=== PATIENT | female | born 1950 | race Two or more races ===

== ENCOUNTER → 2024-02-13 | Outpatient (CLI) | payer OTHER, MEDICAID, SELFPAY ==
[2024-02-13 11:50] LABS: Glucose Estimated Average 151 mg/dL (80-131); Hemoglobin A1C 6.9 % Hgb (4.8-6.0)
[2024-02-13 12:06] LABS: Anion Gap 7 (7-16); BUN/Creatinine Ratio 21 Ratio (12-20); Blood Urea Nitrogen 21 mg/dL (9-23); Calcium 9.2 mg/dL (8.3-10.6); Carbon Dioxide 27.5 mMol/L (20.0-31.0); Cardiac Risk Estimate 4.1 RATIO (3.7-5.6); Chloride 106 mMol/L (98-107); Cholesterol 207 mg/dL (132-200); Glucose 118 mg/dL (74-106); HDL Cholesterol 50 mg/dL (40-60); LDL Cholesterol,Calculated 112 mg/dL (0-130); Osmolality,Calculated 283 (275-295); Potassium 4.6 mMol/L (3.4-5.1); Sodium 140 mMol/L (136-145); Thyroid Stimulating Hormone 7.07 uIU/mL (0.55-4.78); Triglycerides 223 mg/dL (30-150); eGFR 59 See Note
== END | disposition home or self-care (01) ==
PROVIDERS: PCP Family Medicine; Referring Provider Family Medicine; Visit Provider Family Medicine
DX: E11.65 Type 2 diabetes mellitus with hyperglycemia (principal); E03.9 Hypothyroidism, unspecified; E78.2 Mixed hyperlipidemia
CPT/HCPCS: 36415; 80048; 80061; 83036; 84439; 84443

== ENCOUNTER 2024-02-24 07:19 | Outpatient (RCR) | payer OTHER, SELFPAY ==
[2024-02-09 16:40] LABS: Basophils % (Auto) 1 % (0-2.5); Eosinophils % (Auto) 1 % (0-10); Hematocrit 30.8 % (36.0-46.0); Hemoglobin 10.6 g/dL (12.0-16.0); Immature Granulocytes % (Auto) 1 % (0-0); Immature Granulocytes Auto 0.03 Thou/mm3 (0.00-0.00); Lymphocytes # (Auto) 1.9 Thou/mm3 (1.0-4.8); Lymphocytes % (Auto) 39 % (10-50); Mean Corpuscular HGB Conc 34.4 g/dl (31.0-37.0); Mean Corpuscular Hemoglobin 33.8 pg (25.0-35.0); Mean Corpuscular Volume 98 fL (80-100); Monocytes # (Auto) 0.4 Thou/mm3 (0.0-0.8); Monocytes % (Auto) 8 % (0-12); Neutrophils # (Auto) 2.5 Thou/mm3 (1.8-7.7); Neutrophils % (Auto) 52 % (37-80); Nucleated Red Blood Cell # 0.02 Thou/mm3 (0.00-0.00); Nucleated Red Blood Cell % 0 /100 WBC (0); Platelet Count 225 Thou/mm3 (140-440); RDW Standard Deviation 73.3 fL (36.4-46.3); Red Blood Count 3.14 Miln/mm3 (4.00-5.20); White Blood Count 4.9 Thou/mm3 (3.6-11.0)
[2024-02-09 17:27] LABS: Alanine Aminotransferase 20 U/L (10-49); Albumin, Serum 4.3 gm/dL (3.4-4.8); Albumin/Globulin Ratio 1.7 (1.2-2.2); Alkaline Phosphatase 67 U/L (46-116); Anion Gap 11 (7-16); Aspartate Amino Transferase 17 U/L (0-34); BUN/Creatinine Ratio 17 Ratio (12-20); Bilirubin,Total 0.3 mg/dL (0.3-1.2); Blood Urea Nitrogen 19 mg/dL (9-23); Carbon Dioxide 22.9 mMol/L (20.0-31.0); Chloride 104 mMol/L (98-107); Creatinine (Component) 1.1 mg/dL (0.6-1.3); Globulin 2.6 gm/dL (2.3-3.5); Glucose 251 mg/dL (74-106); Osmolality,Calculated 285 (275-295); Potassium 3.9 mMol/L (3.4-5.1); Sodium 138 mMol/L (136-145); Total Protein 6.9 gm/dL (5.7-8.2); eGFR 52 See Note
[2024-02-09 17:30] LABS: Carcinoembryonic Antigen 3.2 ng/mL (0.0-5.0)
[2024-02-17 08:17] LABS: Basophils % (Auto) 1 % (0-2.5); Eosinophils % (Auto) 1 % (0-10); Hematocrit 29.1 % (36.0-46.0); Hemoglobin 10.2 g/dL (12.0-16.0); Immature Granulocytes % (Auto) 1 % (0-0); Immature Granulocytes Auto 0.03 Thou/mm3 (0.00-0.00); Lymphocytes # (Auto) 1.8 Thou/mm3 (1.0-4.8); Lymphocytes % (Auto) 42 % (10-50); Mean Corpuscular HGB Conc 35.1 g/dl (31.0-37.0); Mean Corpuscular Hemoglobin 34.6 pg (25.0-35.0); Mean Corpuscular Volume 99 fL (80-100); Monocytes # (Auto) 0.4 Thou/mm3 (0.0-0.8); Monocytes % (Auto) 8 % (0-12); Neutrophils % (Auto) 47 % (37-80); Nucleated Red Blood Cell # 0.02 Thou/mm3 (0.00-0.00); Nucleated Red Blood Cell % 1 /100 WBC (0); Platelet Count 173 Thou/mm3 (140-440); RDW Standard Deviation 69.3 fL (36.4-46.3); Red Blood Count 2.95 Miln/mm3 (4.00-5.20); White Blood Count 4.2 Thou/mm3 (3.6-11.0)
[2024-02-17 08:57] LABS: Alanine Aminotransferase 16 U/L (10-49); Albumin, Serum 4.2 gm/dL (3.4-4.8); Albumin/Globulin Ratio 1.7 (1.2-2.2); Alkaline Phosphatase 60 U/L (46-116); Anion Gap 9 (7-16); Aspartate Amino Transferase 12 U/L (0-34); BUN/Creatinine Ratio 24 Ratio (12-20); Bilirubin,Total 0.4 mg/dL (0.3-1.2); Blood Urea Nitrogen 19 mg/dL (9-23); Carbon Dioxide 24.4 mMol/L (20.0-31.0); Chloride 107 mMol/L (98-107); Creatinine (Component) 0.8 mg/dL (0.6-1.3); Globulin 2.5 gm/dL (2.3-3.5); Glucose 117 mg/dL (74-106); Osmolality,Calculated 282 (275-295); Potassium 3.6 mMol/L (3.4-5.1); Sodium 140 mMol/L (136-145); Total Protein 6.7 gm/dL (5.7-8.2); eGFR > 60 See Note
[2024-02-19 16:55] LABS: Vitamin B12 366 pg/mL (211-911)
[2024-02-19 16:57] LABS: Ferritin 54 ng/mL (7.3-270.7); Free T4 (Free Thyroxine) 1.39 ng/dL (0.89-1.76); Thyroid Stimulating Hormone 5.37 uIU/mL (0.55-4.78); Total Iron Binding Capacity 324 mcg/dL (250-425)
[2024-02-19 17:06] LABS: Iron 172 mcg/dL (50-170); Percent Iron Saturation 53 % (20-55); Unsaturated Iron Binding 152 (225-295)
[2024-02-23 13:55] LABS: Basophils % (Auto) 0 % (0-2.5); Eosinophils % (Auto) 1 % (0-10); Hemoglobin 10.3 g/dL (12.0-16.0); Immature Granulocytes % (Auto) 0 % (0-0); Immature Granulocytes Auto 0.02 Thou/mm3 (0.00-0.00); Lymphocytes % (Auto) 37 % (10-50); Mean Corpuscular HGB Conc 34.3 g/dl (31.0-37.0); Mean Corpuscular Hemoglobin 34.2 pg (25.0-35.0); Mean Corpuscular Volume 100 fL (80-100); Monocytes # (Auto) 0.3 Thou/mm3 (0.0-0.8); Monocytes % (Auto) 6 % (0-12); Neutrophils % (Auto) 56 % (37-80); Nucleated Red Blood Cell % 0 /100 WBC (0); Platelet Count 184 Thou/mm3 (140-440); RDW Standard Deviation 67.7 fL (36.4-46.3); Red Blood Count 3.01 Miln/mm3 (4.00-5.20); White Blood Count 5.3 Thou/mm3 (3.6-11.0)
[2024-02-23 14:17] LABS: Alanine Aminotransferase 18 U/L (10-49); Albumin, Serum 4.4 gm/dL (3.4-4.8); Albumin/Globulin Ratio 1.7 (1.2-2.2); Alkaline Phosphatase 68 U/L (46-116); Anion Gap 9 (7-16); Aspartate Amino Transferase 13 U/L (0-34); BUN/Creatinine Ratio 21 Ratio (12-20); Bilirubin,Total 0.4 mg/dL (0.3-1.2); Blood Urea Nitrogen 21 mg/dL (9-23); Calcium 9.4 mg/dL (8.3-10.6); Calcium (Corrected) 9.4 mg/dL (8.5-10.1); Carbon Dioxide 25.6 mMol/L (20.0-31.0); Chloride 107 mMol/L (98-107); Globulin 2.6 gm/dL (2.3-3.5); Glucose 166 mg/dL (74-106); Osmolality,Calculated 290 (275-295); Potassium 3.8 mMol/L (3.4-5.1); Sodium 142 mMol/L (136-145); eGFR 58 See Note
== END 2024-03-06 23:59 | disposition home or self-care (01) ==
LOC: SCTC 07:19
PROVIDERS: PCP Family Medicine; Referring Provider Family Medicine; Visit Provider Internal Medicine Hematology & Oncology
DX: Z51.11 Encounter for antineoplastic chemotherapy (principal); C56.9 Malignant neoplasm of unspecified ovary; J91.0 Malignant pleural effusion; R18.0 Malignant ascites; D64.9 Anemia, unspecified; I10 Essential (primary) hypertension; E11.9 Type 2 diabetes mellitus without complications; E78.00 Pure hypercholesterolemia, unspecified; E03.9 Hypothyroidism, unspecified
CPT/HCPCS: 36591; 80053; 82378; 82607; 82728; 82746; 83540; 83550; 84439; 84443; 85025; 86304; 96367; 96375; 96411; 96413; 96415; 96417; 99212; A4216; J1100; J1453; J1642; J2405; J3490; J7040; J7050; J9045; J9267; A9270; G0463

== ENCOUNTER → 2024-03-25 | Outpatient (CLI) | payer OTHER, MEDICAID, SELFPAY ==
[2024-03-25 11:50] LABS: Thyroid Stimulating Hormone 3.15 uIU/mL (0.55-4.78)
== END | disposition home or self-care (01) ==
LOC: COPL 10:41
PROVIDERS: PCP Family Medicine; Referring Provider Family Medicine; Visit Provider Family Medicine
DX: E03.8 Other specified hypothyroidism (principal)
CPT/HCPCS: 36415; 84439; 84443

== ENCOUNTER 2024-03-30 08:59 | Outpatient (RCR) | payer OTHER, MEDICAID, SELFPAY ==
[2024-03-08 10:02] LABS: Misc Send Out* See Sep Rpt
[2024-03-08 10:05] LABS: Collection Type, Urine Voided
[2024-03-08 10:09] LABS: Basophils % (Auto) 0 % (0-2.5); Eosinophils # (Auto) 0.1 Thou/mm3 (0.0-0.5); Eosinophils % (Auto) 1 % (0-10); Hematocrit 30.3 % (36.0-46.0); Hemoglobin 10.3 g/dL (12.0-16.0); Immature Granulocytes % (Auto) 0 % (0-0); Immature Granulocytes Auto 0.02 Thou/mm3 (0.00-0.00); Lymphocytes # (Auto) 1.6 Thou/mm3 (1.0-4.8); Lymphocytes % (Auto) 30 % (10-50); Mean Corpuscular Hemoglobin 34.8 pg (25.0-35.0); Mean Corpuscular Volume 102 fL (80-100); Monocytes # (Auto) 0.5 Thou/mm3 (0.0-0.8); Monocytes % (Auto) 9 % (0-12); Neutrophils # (Auto) 3.1 Thou/mm3 (1.8-7.7); Neutrophils % (Auto) 59 % (37-80); Nucleated Red Blood Cell % 0 /100 WBC (0); Platelet Count 189 Thou/mm3 (140-440); RDW Standard Deviation 65.6 fL (36.4-46.3); Red Blood Count 2.96 Miln/mm3 (4.00-5.20); White Blood Count 5.3 Thou/mm3 (3.6-11.0)
[2024-03-08 10:26] LABS: Alanine Aminotransferase 14 U/L (10-49); Albumin, Serum 4.5 gm/dL (3.4-4.8); Albumin/Globulin Ratio 1.9 (1.2-2.2); Alkaline Phosphatase 79 U/L (46-116); Anion Gap 11 (7-16); Aspartate Amino Transferase 11 U/L (0-34); BUN/Creatinine Ratio 19 Ratio (12-20); Bilirubin,Total 0.4 mg/dL (0.3-1.2); Blood Urea Nitrogen 17 mg/dL (9-23); Calcium 9.1 mg/dL (8.3-10.6); Calcium (Corrected) 9.1 mg/dL (8.5-10.1); Carbon Dioxide 22.9 mMol/L (20.0-31.0); Chloride 105 mMol/L (98-107); Creatinine (Component) 0.9 mg/dL (0.6-1.3); Globulin 2.4 gm/dL (2.3-3.5); Glucose 138 mg/dL (74-106); Osmolality,Calculated 281 (275-295); Potassium 3.9 mMol/L (3.4-5.1); Sodium 139 mMol/L (136-145); Total Protein 6.9 gm/dL (5.7-8.2); eGFR > 60 See Note
[2024-03-08 11:00] LABS: Bacteria,Urine Rare; Bilirubin,Urine Negative (Negative); Blood,Urine Trace (Negative); Clarity,Urine Clear (Clear/Hazy); Color,Urine Lt-Yellow (Lt Yel-Yel); Glucose, Urine 4+ (Negative); Ketones,Urine Negative (Negative); Leukocyte Esterase,Urine Negative (Negative); Nitrite,Urine Negative (Negative); Protein,Urine Negative (Neg - Trace); RBC,Urine < 1 /hpf (0-3); Squamous Epithelial Cell,Urine 2 /hpf (0-5); Urobilinogen,Urine Negative mg/dL (0.0-1.0); WBC,Urine 1 /hpf (0-5)
[2024-03-29 11:00] LABS: Basophils % (Auto) 0 % (0-2.5); Eosinophils # (Auto) 0.1 Thou/mm3 (0.0-0.5); Eosinophils % (Auto) 2 % (0-10); Hematocrit 33.8 % (36.0-46.0); Hemoglobin 11.4 g/dL (12.0-16.0); Immature Granulocytes % (Auto) 0 % (0-0); Immature Granulocytes Auto 0.01 Thou/mm3 (0.00-0.00); Lymphocytes # (Auto) 1.8 Thou/mm3 (1.0-4.8); Lymphocytes % (Auto) 28 % (10-50); Mean Corpuscular HGB Conc 33.7 g/dl (31.0-37.0); Mean Corpuscular Hemoglobin 34.3 pg (25.0-35.0); Mean Corpuscular Volume 102 fL (80-100); Monocytes # (Auto) 0.5 Thou/mm3 (0.0-0.8); Monocytes % (Auto) 8 % (0-12); Neutrophils % (Auto) 62 % (37-80); Nucleated Red Blood Cell % 0 /100 WBC (0); Platelet Count 270 Thou/mm3 (140-440); RDW Standard Deviation 58.5 fL (36.4-46.3); Red Blood Count 3.32 Miln/mm3 (4.00-5.20); White Blood Count 6.5 Thou/mm3 (3.6-11.0)
[2024-03-29 11:17] LABS: Alanine Aminotransferase 11 U/L (10-49); Albumin, Serum 4.4 gm/dL (3.4-4.8); Albumin/Globulin Ratio 1.6 (1.2-2.2); Alkaline Phosphatase 75 U/L (46-116); Anion Gap 10 (7-16); Aspartate Amino Transferase 10 U/L (0-34); BUN/Creatinine Ratio 20 Ratio (12-20); Bilirubin,Total 0.4 mg/dL (0.3-1.2); Blood Urea Nitrogen 20 mg/dL (9-23); Calcium 9.1 mg/dL (8.3-10.6); Calcium (Corrected) 9.1 mg/dL (8.5-10.1); Carbon Dioxide 22.3 mMol/L (20.0-31.0); Chloride 107 mMol/L (98-107); Free T4 (Free Thyroxine) 1.19 ng/dL (0.89-1.76); Globulin 2.8 gm/dL (2.3-3.5); Glucose 148 mg/dL (74-106); Osmolality,Calculated 283 (275-295); Potassium 3.9 mMol/L (3.4-5.1); Sodium 139 mMol/L (136-145); Total Protein 7.2 gm/dL (5.7-8.2); eGFR 58 See Note
[2024-03-29 11:44] LABS: Folate 18.68 ng/mL (>5.38); Vitamin B12 286 pg/mL (211-911)
[2024-03-29 12:55] LABS: Collection Type, Urine Voided
[2024-03-29 13:21] LABS: Bilirubin,Urine Negative (Negative); Blood,Urine Negative (Negative); Clarity,Urine Clear (Clear/Hazy); Color,Urine Lt-Yellow (Lt Yel-Yel); Glucose, Urine 4+ (Negative); Ketones,Urine Negative (Negative); Leukocyte Esterase,Urine Positive (Negative); Nitrite,Urine Negative (Negative); Protein,Urine Negative (Neg - Trace); RBC,Urine 3 /hpf (0-3); Specific Gravity,Urine 1.028 (1.001-1.035); Squamous Epithelial Cell,Urine 1 /hpf (0-5); Urobilinogen,Urine Negative mg/dL (0.0-1.0); WBC,Urine 5 /hpf (0-5)
[2024-03-29 15:50] LABS: Ferritin 24 ng/mL (7.3-270.7); Total Iron Binding Capacity 331 mcg/dL (250-425)
[2024-03-29 16:02] LABS: Iron 60 mcg/dL (50-170); Percent Iron Saturation 18 % (20-55); Unsaturated Iron Binding 271 (225-295)
== END 2024-04-06 23:59 | disposition home or self-care (01) ==
LOC: SCTC 08:59
PROVIDERS: Internal Medicine Hematology & Oncology; Radiology Therapeutic Radiology; PCP Family Medicine; Referring Provider Family Medicine; Visit Provider Nurse Practitioner Family
DX: Z51.11 Encounter for antineoplastic chemotherapy (principal); C56.9 Malignant neoplasm of unspecified ovary; J91.0 Malignant pleural effusion; R18.0 Malignant ascites; D64.9 Anemia, unspecified; I10 Essential (primary) hypertension; E11.9 Type 2 diabetes mellitus without complications; E78.00 Pure hypercholesterolemia, unspecified; E03.9 Hypothyroidism, unspecified
CPT/HCPCS: 36591; 80053; 81001; 82607; 82728; 82746; 83540; 83550; 84439; 84443; 85025; 86304; 96413; 96415; 99212; A4216; J1642; Q5126; G0463

== ENCOUNTER → 2024-04-02 | Outpatient (CLI) | payer OTHER, MEDICAID, SELFPAY ==
--- NOTE | 2024-04-02 13:30 | ECHO_ITS ---
Transthoracic Echo Report Ht (in): 61 Wt (lb): 141 Exam Location: Echo Lab Status: Preadmit Eclectic Doctor: Suzy Lynn Indications: Procedure Performed: BP: / HR: Rhythm: Sinus Technical Quality: Fair MEASUREMENTS (Male / Female) Normal Values 2D ECHO LV Diastolic Diameter PLAX 4.1 cm 4.2 - 5.9 / 3.9 - 5.3 cm LV Systolic Diameter PLAX 2.7 cm IVS Diastolic Thickness 1.0 cm 0.6 - 1.0 / 0.6 - 0.9 cm LVPW Diastolic Thickness 1.0 cm 0.6 - 1.0 / 0.6 - 0.9 cm LV Relative Wall Thickness 0.5 LVOT Diameter 1.8 cm LA Volume Index 16.8 cm?/m? 16 - 28 cm?/m? Ascending Aorta Diameter 3.0 cm M-MODE Aortic Root Diameter MM 2.7 cm LA Systolic Diameter MM 3.4 cm LA Ao Ratio MM 1.3 AV Cusp Separation MM 1.9 cm DOPPLER AV Peak Velocity 121.0 cm/s AV Peak Gradient 5.9 mmHg AV Mean Gradient 3.0 mmHg AV Velocity Time Integral 20.3 cm LVOT Peak Velocity 92.8 cm/s LVOT Peak Gradient 3.4 mmHg LVOT Velocity Time Integral 19.0 cm AV Area Cont Eq vti 2.4 cm? AV Area Cont Eq pk 2.0 cm? MV Peak Velocity 103.0 cm/s MV Peak Gradient 4.2 mmHg MV Mean Velocity 67.2 cm/s MV Mean Gradient 2.0 mmHg MV Area PHT 3.9 cm? Mitral E Point Velocity 75.1 cm/s Mitral A Point Velocity 94.7 cm/s Mitral E to A Ratio 0.8 LV E' Lateral Velocity 5.9 cm/s Mitral E to LV E' Lateral Ratio 12.8 LV E' Septal Velocity 3.7 cm/s Mitral E to LV E' Septal Ratio 20.3 FINDINGS Left Ventricle Normal left ventricular size, wall thickness, systolic function with no obvious regional wall motion abnormalities. The ejection fraction is visually estimated at 60-65%. Right Ventricle The right ventricle is normal in size and systolic function. Left Atrium The left atrium is normal by two-dimensional, color flow and Doppler imaging with no structural abnormalities, no thrombus formation present. Right Atrium The right atrium is normal by two-dimensional imaging, color flow and Doppler imaging with no struct ural abnormalities, no thrombus formation present. Atrial Septum The interatrial septum appears normal with no evidence of a shunt. Aorta The aorta is normal by two-dimensional, color flow and Doppler interrogation. Mitral Valve The mitral valve is normal by two-dimensional, color flow and Doppler interrogation. There is trace mitral valve regurgitation. Aortic Valve The aortic valve is trileaflet and normal by two-dimensional, color flow and Doppler interrogation. There is no significant aortic valve regurgitation. Tricuspid Valve The tricuspid valve is normal by two-dimensional, color flow and Doppler interrogation. There is tra ce tricuspid valve regurgitation. Pulmonic Valve There is no significant pulmonic valve regurgitation. Vessels The pulmonary artery appears normal. The inferior vena cava pulmonary and hepatic veins appear emilee l. Pericardium The pericardium is normal by two-dimensional imaging. There is no significant pericardial effusion. CONCLUSIONS Normal LV size and function. Estimated EF 60-65% Normal RV size and function Trace MR, TR. Debbie Bynum (Electronically Signed) Final Date: 02 April 2024 17:09
[2024-04-02 14:00] LABS: Collection Type, Urine Clean Catch
[2024-04-02 14:39] LABS: Bilirubin,Urine Negative (Negative); Blood,Urine Negative (Negative); Clarity,Urine Clear (Clear/Hazy); Color,Urine Lt-Yellow (Lt Yel-Yel); Glucose, Urine 4+ (Negative); Ketones,Urine Negative (Negative); Leukocyte Esterase,Urine Positive (Negative); Nitrite,Urine Negative (Negative); PH,Urine 5.5 (5.0-7.0); Protein,Urine Negative (Neg - Trace); RBC,Urine 7 /hpf (0-3); Specific Gravity,Urine 1.027 (1.001-1.035); Squamous Epithelial Cell,Urine 2 /hpf (0-5); Urobilinogen,Urine Negative mg/dL (0.0-1.0); WBC,Urine 12 /hpf (0-5)
== END | disposition home or self-care (01) ==
LOC: SDIM 13:57 → SLDO 14:00 → CDIM 04-23 13:44
PROVIDERS: PCP Family Medicine; Referring Provider Internal Medicine Hematology & Oncology; Visit Provider Internal Medicine Hematology & Oncology
DX: I08.1 Rheumatic disorders of both mitral and tricuspid valves (principal); C56.9 Malignant neoplasm of unspecified ovary; R30.0 Dysuria
CPT/HCPCS: 81001; 87086; 93306

== ENCOUNTER → 2024-04-12 | Outpatient (CLI) | payer MEDICARE, MEDICAID, SELFPAY ==
--- NOTE | 2024-04-12 11:45 | XR_ITS ---
Examination: Screening digital mammography, bilateral Computer aided detection 3-D breast Tomosynthesis, bilateral Date and time of exam: April 12, 2024 1035 hours Compared to mammograms dating to October 06, 2015 Indication: Screening Technique: Nonmagnified MLO, CC views of the breasts to been obtained, reconstructed from 3-D Tomosynthesis images. R2 computer aided detection program utilized for evaluation of suspicious masses and/or abnormal calcifications. 3-D Tomosynthesis images obtained. Findings: The breasts are heterogeneously dense, which may obscure small masses Benign calcifications No suspicious masses Impression: BI-RADS category II: Benign Findings. Recommend 1 year follow-up mammogram.
--- NOTE | 2024-04-12 12:00 | XR_ITS ---
Examination: Bone densitometry Date and time of exam:April 12, 2024 1049 hours INDICATIONS: Menopause age 49, family history, mother hip fracture, levothyroxine 10 years Technique: Lumbar spine and hip total bone mineralization values of an calculated. Peak reference and age match control results have been displayed. Findings: Lumbar spine total bone mineralization is1.081 gm/cm2. This is 0.3 standard deviations above peak reference. This is 2.8 standard deviations above age-matched controls. Hip total bone mineralization is 0.935 gm/cm2 This is 0.2 standard deviations below peak reference. This is 1.7 standard deviations above age-matched controls Impression: There is normal mineralization based on lumbar spine measurements. There is osteopenia based on hip measurements Lumbar mineralization is increased 2.8% compared with November 03, 2020 Hip mineralization is decreased 3.9% compared with November 03, 2020
== END | disposition home or self-care (01) ==
PROVIDERS: PCP Family Medicine; Referring Provider Family Medicine; Visit Provider Family Medicine
DX: Z12.31 Encounter for screening mammogram for malignant neoplasm of breast (principal); R92.323 Mammographic fibroglandular density, bilateral breasts; R92.1 Mammographic calcification found on diagnostic imaging of breast; M85.80 Other specified disorders of bone density and structure, unspecified site
CPT/HCPCS: 77063; 77067; 77080

== ENCOUNTER 2024-04-20 13:52 | Outpatient (RCR) | payer MEDICARE, MEDICAID, SELFPAY ==
--- NOTE | 2024-04-13 16:37 | CTCFLWUP_ITS ---
Patient: AARON OSMAN : 1950 Page 2 of 2 FOLLOW UP NOTE DATE OF SERVICE: 04/13/2024 NAME: AARON OSMAN ACCOUNT: [id number] : 1950 AGE: 74 INTERVAL HISTORY: PREVIOUS NOTES: Ms. Osman is here at [facility] accompanied by her Shubham muhammad. Patient completed cycle 18 of weekly dose of carboplatin and Taxol in 02/2024 and has been on bevacizumab.patient have stable AND FEELING GOOD. HISTORY: Aaron Osman is a 74-year-old SPA speaking female with history of type 2 diab etes, hypertension, hypercholesterolemia has the following oncology history. 02/16/2013: CA 125 is 319.9. 02/17/2013: Transvaginal entrance abdominal ultrasound? 03/23/2013: Ms. Osman had the following surgery done at [facility]. 05/10/2013 - 08/23/2013: Ms. Osman received 6 cycles of adjuvant carboplatin and paclitaxel here at [facility]. 08/25/2023: Patient had chest x-rays done due to persistent cough 08/27/2023 CT scan of the chest with and without contrast was obtained 09/02/2023: Ms. Osman had ultrasound-guided left thoracentesis. 1025 cc of pleural fluid was remov ed. 09/10/2023: CT scan of the abdomen and pelvis with and without IV contrast 09/10/2023: Transvaginal ultrasound 09/18/2023: Ms. Osman had left-sided thoracentesis 10/04/2023: PET/CT scan? 10/27/2023: CA 125 is 874.0 10/28/2023: Ms. Osman received first weekly dose of Taxol and carboplatin. 11/04/2023: CA 125 is 513. 11/04/2023: Ms. Osman received second dose of weekly Taxol and carboplatin. 11/10/2023: CA 125 is 390. 02/05/2024: CT of chest abdomen and pelvis with contrast, essentially negative, no evidence for mass, no abdominal or pelvic lymphadenopathy 02/17/2024: CA125 169.0 03/08/2024: CEA 125 is 175.0 ONCOLOGY HISTORY:?CloneBlock Oncology Hx? Patient completed 18 cycles of carboplatin and Taxol on 03/02/2024. Patient started bevacizumab 15 m g/kg on 03/09/2024. Patient reports increased energy level since she completed carboplatin and Taxol and started bevacizumab. Previously levothyroxine was increased to 37.5mcg, started new dosage on . CA125 was 175 on 03/08/2024. Patient reports good appetite. Ambulating well without assist ance. Patient denies neuropathy. INTERVAL HISTORY: PREVIOUS NOTES: Ms. Osman is here at [facility] accompanied by her Shubham muhammad. Patient completed cycle 16 of weekly dose of carboplatin and Taxol. CA125 is 169.0. CT of chest abdomen and pelvis with contrast done on 02/05/2024 showed no liver lesions, no adnexal m ass, no abdominal or pelvic lymphadenopathy. TSH is 7.07 T4 is 1.40, 02/13/2024. Patient is taking levothyroxine 25 mcg daily. Unfortunately, iron saturation ferritin B12 were not collected, hemoglob in 10.2, MCV 99. Patient complaining of feeling tired. Patient denies neuropathy. Patient reports good appetite. Patient denies any other concerns or complaints. She denies any cough, chest pain, ab dominal pain or leg cramps. Ambulating well without any help. HISTORY: Aaron Osman is a 74-year-old SPA speaking female with history of type 2 diab etes, hypertension, hypercholesterolemia has the following oncology history. 02/16/2013: CA 125 is 319.9. 02/17/2013: Transvaginal entrance abdominal ultrasound? 03/23/2013: Ms. Osman had the following surgery done at [facility]. 05/10/2013 - 08/23/2013: Ms. Osman received 6 cycles of adjuvant carboplatin and paclitaxel here at [facility]. 08/25/2023: Patient had chest x-rays done due to persistent cough 08/27/2023 CT scan of the chest with and without contrast was obtained 09/02/2023: Ms. Osman had ultrasound-guided left thoracentesis. 1025 cc of pleural fluid was remov ed. 09/10/2023: CT scan of the abdomen and pelvis with and without IV contrast 09/10/2023: Transvaginal ultrasound 09/18/2023: Ms. Osman had left-sided thoracentesis 10/04/2023: PET/CT scan? 10/27/2023: CA 125 is 874.0 10/28/2023: Ms. Osman received first weekly dose of Taxol and carboplatin. 11/04/2023: CA 125 is 513. 11/04/2023: Ms. Osman received second dose of weekly Taxol and carboplatin. 11/10/2023: CA 125 is 390. 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 S/p adjuvant chemotherapy with Taxol and carboplatin (05/10/2013 - 08/23/2013) s/p Taxol and carboplatin 18 cycles completed 03/02/2024. Bevacizumab 15 mg/kg every 3 weeks started on 03/09/2024 Type 2 diabetes without any peripheral neuropathy. Hypertension. Hypercholesterolemia. DATE OF DIAGNOSIS: 09/02/2023 STAGE/TNM: IIIC T3b N1 M0 TREATMENT HISTORY: Care?Plan Start?Date Cycle Day Intent CARBOplatin?AUC?6,?PACLItaxel?175?-?Rec?or?Met 05/10/2013 1 Curative?(adjuvant) CARBOplatin?AUC?6,?PACLItaxel?175?-?Rec?or?Met 05/10/2013 21 Curative?(adjuvant) PACLItaxel?60mg/m*2?+?Carboplatin?AUC?2?-weekly?x?18weeks?2 10/28/2023 1 7 Palliative Bevacizumab?15?mg/kg?-?Met 03/09/2024 1 21 Palliative HISTORY OF PRESENT ILLNESS: OTHER MEDICAL HISTORY/CONDITIONS: Ovarian cancer - dx 03/2013 HTN Diabetes Hypothyroid Hyperlipidemia ANH-BSO - 03/23/2013 x 3 Total right shoulder replacement - 10/2022- Dr. Claudio FAMILY HISTORY: Cancer?History:?Denies Patient?denies?family?cancer?history. SOCIAL HISTORY: Occupational?History:?Retired Education?Level:?Completed something less than 8th grade Marital?Status:? Tobacco Use:?Quit 50-60yrs ago - Socially ETOH?Use:?Denies Drug?Note:?Denies Social?History?Note:?Lives?with? [employer] HISTORY: Menarche?-?Age:?12 Menopause:?53 :?5 Live?Births:?5 Age?1st?:?24 MEDICATIONS: 1. Albuterol Sulfate HFA - 90 mcg/Actuation 2 Puff(s) Every 4 Hours 2. Crestor - 20 mg 1 tab Daily 3. glyBURIDE-metformin - 2.5-500 mg 1 tab Twice a Day 4. Lasix - 20 mg 1 tab po q daily 5. levothyroxine - 37.5 mcg 1 Capsule Daily 6. lisinopril - 20 mg 1 tab Daily 7. lisinopril - 10 mg 1 tab Daily 8. Tradjenta - 5 mg 1 tab Daily?Palabra Meds? Medications Last Reconciled by Amber Burris MA on 04/13/2024 ALLERGIES: No Known Drug Allergies REVIEW OF SYSTEMS: A complete 14-point review of systems was performed and is negative except as noted in interval histo ry. PHYSICAL EXAMINATION:?CloneBlock PE? VITAL SIGNS: NEURO: Alert and oriented x4 EYE: Conjunctivae is white CHEST: Clear to auscultation. No wheezes or rales audible. Right sided chemo port. CARDIAC: Rhythm regular. EXTREMITIES: No pedal edema or cyanosis. LABORATORY DATA: I have personally reviewed and interpreted each of the patient?s relevant lab tests, abnormal finding s are below: Date 03/29/24 ??WHITE?BLOOD?COUNT?(Thou/mm3) 6.5 ??RED?BLOOD?COUNT?(Miln/mm3) 3.32?L ??HEMOGLOBIN?(gm/dl) 11.4?L ??HEMATOCRIT?(%) 33.8?L ??PLATELET?COUNT?(Thou/mm3) 270 ??NEUTROPHILS?%,?AUTO?(%) 62 ??LYMPH?%,?AUTO?(%) 28 ??NEUTROPHILS,?AUTO?(Thou/mm3) 4.0 ASSESSMENT/PLAN:?Juan Dominguez Assessment/Plan? #1 metastatic ovarian cancer Patient had malignant pleural effusion as well as ascites fluid left-sided thoracentesis (09/18/2023) Patient had thoracentesis (09/02/2023). 1025 cc of pleural fluid was removed. metastatic ovarian carcinoma with left-sided malignant pleural effusion (09/02/2023), and ascites her CA125 decreased to 163. Abdominal distention and discomfort also significantly improved. CA125 is 175.0 on 03/08/2024 Patient complained of fatigue and tiredness along with some shaking since when she started chemothera py, shaking has resolved. Chemo was stopped . she was started on NIKKY CT chest abdomen and pelvis with contrast to evaluate status of her disease essentially negative, no adnexal mass, no abdominal or pelvic lymphadenopathy, 02/05/2024. Complete chemotherapy, 18 cycles Taxol and carboplatin, 03/02/2024 Echo scheduled for 04/02/2024 Started Bevacizumab (Avastin) 15mg/kg on 03/09/2024, cycles every 3 weeks. Patient reports increased energy levels since she started bevacizumab CBC CMP CA125 prior to next follow-up appointment. 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 Will continue closely monitoring #3 anemia Likely from chemotherapy with carboplatin Iron saturation 53%, ferritin 54, B12 366, folate 10.19 Anemia panel prior to next follow-up appointment #4 hypertension and diabetes mellitus type 2 Advised to continue follow-up with PCP Blood pressure well-controlled #5 hypercholesterolemia Continue follow with PCP #6 hypothyroidism Levothyroxine increased to 37.5mcg daily from 25mcg daily, started new dosage on 03/08/2024 TSH was checked to make sure patient is not having iatrogenic thyrotoxicosis TSH 7.07 on 02/13/2024. TSH T4 prior to next follow-up appointment CBC and CMP today or tomorrow CT CAP With Contrast RETURN TO CLINIC: BILLING AND COMPLIANCE: I reviewed external records from providers outside my specialty as summarized above. I spent a total of 50 minutes on this patient?s care on the day of their visit excluding time spent related to any bi lled procedures. This time includes time spent with the patient as well as time spent documenting in the medical record, reviewing patients records and tests, obtaining history, placing orders, communi cating with other healthcare professionals, counseling the patient, family or caregiver, and/or care coordination for the diagnoses above. Electronically Signed by: Kyle Dominguez MD T: 4:34 PM CC: PCP: Amber Segura Referring: Amber Segura This document was completed utilizing speech recognition software. Grammatical errors, random word in sertions, pronoun errors, and incomplete sentences are an occasional consequence of this system due t o software limitations, ambient noise, and hardware issues. Any formal questions or concerns about th e content, text or information contained within the body of this dictation should be directly address ed to the provider for clarification.
[2024-04-19 10:20] LABS: Collection Type, Urine Voided
[2024-04-19 10:22] LABS: Basophils % (Auto) 1 % (0-2.5); Eosinophils # (Auto) 0.2 Thou/mm3 (0.0-0.5); Eosinophils % (Auto) 2 % (0-10); Hematocrit 35.9 % (36.0-46.0); Hemoglobin 11.9 g/dL (12.0-16.0); Immature Granulocytes % (Auto) 0 % (0-0); Immature Granulocytes Auto 0.01 Thou/mm3 (0.00-0.00); Lymphocytes % (Auto) 32 % (10-50); Mean Corpuscular HGB Conc 33.1 g/dl (31.0-37.0); Mean Corpuscular Hemoglobin 33.1 pg (25.0-35.0); Mean Corpuscular Volume 100 fL (80-100); Monocytes # (Auto) 0.5 Thou/mm3 (0.0-0.8); Monocytes % (Auto) 8 % (0-12); Neutrophils # (Auto) 3.6 Thou/mm3 (1.8-7.7); Neutrophils % (Auto) 57 % (37-80); Nucleated Red Blood Cell % 0 /100 WBC (0); Platelet Count 208 Thou/mm3 (140-440); RDW Standard Deviation 51.6 fL (36.4-46.3); Red Blood Count 3.59 Miln/mm3 (4.00-5.20); White Blood Count 6.3 Thou/mm3 (3.6-11.0)
[2024-04-19 10:32] LABS: Bilirubin,Urine Negative (Negative); Blood,Urine Negative (Negative); Clarity,Urine Clear (Clear/Hazy); Color,Urine Lt-Yellow (Lt Yel-Yel); Glucose, Urine 4+ (Negative); Ketones,Urine Negative (Negative); Leukocyte Esterase,Urine Negative (Negative); Nitrite,Urine Negative (Negative); Protein,Urine Negative (Neg - Trace); RBC,Urine 1 /hpf (0-3); Specific Gravity,Urine 1.025 (1.001-1.035); Squamous Epithelial Cell,Urine 1 /hpf (0-5); Urobilinogen,Urine Negative mg/dL (0.0-1.0); WBC,Urine 1 /hpf (0-5)
[2024-04-19 19:00] LABS: Alanine Aminotransferase 8 U/L (10-49); Albumin, Serum 4.5 gm/dL (3.4-4.8); Albumin/Globulin Ratio 1.6 (1.2-2.2); Alkaline Phosphatase 69 U/L (46-116); Anion Gap 10 (7-16); Aspartate Amino Transferase 11 U/L (0-34); BUN/Creatinine Ratio 22 Ratio (12-20); Bilirubin,Total 0.4 mg/dL (0.3-1.2); Blood Urea Nitrogen 22 mg/dL (9-23); Calcium 9.1 mg/dL (8.3-10.6); Calcium (Corrected) 9.1 mg/dL (8.5-10.1); Carbon Dioxide 23.1 mMol/L (20.0-31.0); Chloride 108 mMol/L (98-107); Free T4 (Free Thyroxine) 1.14 ng/dL (0.89-1.76); Globulin 2.8 gm/dL (2.3-3.5); Glucose 119 mg/dL (74-106); Osmolality,Calculated 285 (275-295); Sodium 141 mMol/L (136-145); Thyroid Stimulating Hormone 4.07 uIU/mL (0.55-4.78); Total Protein 7.3 gm/dL (5.7-8.2); eGFR 58 See Note
[2024-04-19 19:23] LABS: Folate 11.08 ng/mL (>5.38); Vitamin B12 272 pg/mL (211-911)
[2024-04-19 19:43] LABS: Carcinoembryonic Antigen 2.2 ng/mL (0.0-5.0)
[2024-04-19 20:58] LABS: Ferritin 11 ng/mL (7.3-270.7); Iron 46 mcg/dL (50-170); Percent Iron Saturation 13 % (20-55); Total Iron Binding Capacity 346 mcg/dL (250-425); Unsaturated Iron Binding 300 (225-295)
== END 2024-05-07 23:59 | disposition home or self-care (01) ==
LOC: SCTC 13:52
PROVIDERS: PCP Family Medicine; Referring Provider Family Medicine; Visit Provider Internal Medicine Hematology & Oncology
DX: Z51.11 Encounter for antineoplastic chemotherapy (principal); C56.9 Malignant neoplasm of unspecified ovary; J91.0 Malignant pleural effusion; G62.9 Polyneuropathy, unspecified; D64.9 Anemia, unspecified; I10 Essential (primary) hypertension; E11.9 Type 2 diabetes mellitus without complications; E78.00 Pure hypercholesterolemia, unspecified; E03.9 Hypothyroidism, unspecified; Z79.899 Other long term (current) drug therapy; Z79.84 Long term (current) use of oral hypoglycemic drugs
CPT/HCPCS: 36591; 80053; 81001; 82378; 82607; 82728; 82746; 83540; 83550; 84439; 84443; 85025; 86304; 96413; 99212; A4216; J1642; Q5126; G0463

== ENCOUNTER → 2024-05-31 | Outpatient (CLI) | payer MEDICARE, MEDICAID, SELFPAY ==
[2024-05-31 11:07] LABS: Anion Gap 8 (7-16); BUN/Creatinine Ratio 24 Ratio (12-20); Blood Urea Nitrogen 24 mg/dL (9-23); Calcium 9.2 mg/dL (8.3-10.6); Carbon Dioxide 26.1 mMol/L (20.0-31.0); Cardiac Risk Estimate 3.5 RATIO (3.7-5.6); Chloride 108 mMol/L (98-107); Cholesterol 148 mg/dL (132-200); Glucose 87 mg/dL (74-106); HDL Cholesterol 42 mg/dL (40-60); LDL Cholesterol,Calculated 73 mg/dL (0-130); Osmolality,Calculated 286 (275-295); Potassium 5.3 mMol/L (3.4-5.1); Sodium 142 mMol/L (136-145); Triglycerides 164 mg/dL (30-150); eGFR 58 See Note
[2024-05-31 11:33] LABS: Glucose Estimated Average 120 mg/dL (80-131); Hemoglobin A1C 5.8 % Hgb (4.8-6.0)
[2024-05-31 11:43] LABS: Creatinine MALB Rnd Ur 120 mg/dL (30-125); Microalbumin Creat Ratio 10 mg/gCrea (<30); Microalbumin, Random Urine 12 mg/L (0-300)
== END | disposition home or self-care (01) ==
LOC: COPL 09:56
PROVIDERS: PCP Family Medicine; Referring Provider Family Medicine; Visit Provider Family Medicine
DX: E11.65 Type 2 diabetes mellitus with hyperglycemia (principal)
CPT/HCPCS: 36415; 80048; 80061; 82043; 82570; 83036

== ENCOUNTER 2024-06-01 13:04 | Outpatient (RCR) | payer MEDICARE, MEDICAID, SELFPAY ==
[2024-05-10 16:39] LABS: Collection Type, Urine Voided
[2024-05-10 16:49] LABS: Basophils # (Auto) 0.1 Thou/mm3 (0.0-0.2); Basophils % (Auto) 1 % (0-2.5); Eosinophils # (Auto) 0.2 Thou/mm3 (0.0-0.5); Eosinophils % (Auto) 2 % (0-10); Hematocrit 38.7 % (36.0-46.0); Hemoglobin 12.8 g/dL (12.0-16.0); Immature Granulocytes % (Auto) 0 % (0-0); Immature Granulocytes Auto 0.02 Thou/mm3 (0.00-0.00); Lymphocytes # (Auto) 2.4 Thou/mm3 (1.0-4.8); Lymphocytes % (Auto) 29 % (10-50); Mean Corpuscular HGB Conc 33.1 g/dl (31.0-37.0); Mean Corpuscular Hemoglobin 32.1 pg (25.0-35.0); Mean Corpuscular Volume 97 fL (80-100); Monocytes # (Auto) 0.5 Thou/mm3 (0.0-0.8); Monocytes % (Auto) 7 % (0-12); Neutrophils # (Auto) 5.2 Thou/mm3 (1.8-7.7); Neutrophils % (Auto) 62 % (37-80); Nucleated Red Blood Cell % 0 /100 WBC (0); Platelet Count 202 Thou/mm3 (140-440); RDW Standard Deviation 48.1 fL (36.4-46.3); Red Blood Count 3.99 Miln/mm3 (4.00-5.20); White Blood Count 8.3 Thou/mm3 (3.6-11.0)
[2024-05-10 16:54] LABS: Bilirubin,Urine Negative (Negative); Blood,Urine Negative (Negative); Clarity,Urine Clear (Clear/Hazy); Color,Urine Lt-Yellow (Lt Yel-Yel); Glucose, Urine 4+ (Negative); Ketones,Urine Negative (Negative); Leukocyte Esterase,Urine Negative (Negative); Nitrite,Urine Negative (Negative); Protein,Urine Negative (Neg - Trace); RBC,Urine 1 /hpf (0-3); Squamous Epithelial Cell,Urine 1 /hpf (0-5); Urobilinogen,Urine Negative mg/dL (0.0-1.0); WBC,Urine < 1 /hpf (0-5)
[2024-05-10 17:20] LABS: Alanine Aminotransferase 10 U/L (10-49); Albumin, Serum 4.5 gm/dL (3.4-4.8); Albumin/Globulin Ratio 1.4 (1.2-2.2); Alkaline Phosphatase 72 U/L (46-116); Anion Gap 10 (7-16); Aspartate Amino Transferase 10 U/L (0-34); BUN/Creatinine Ratio 16 Ratio (12-20); Bilirubin,Total 0.5 mg/dL (0.3-1.2); Blood Urea Nitrogen 16 mg/dL (9-23); Calcium 9.3 mg/dL (8.3-10.6); Calcium (Corrected) 9.3 mg/dL (8.5-10.1); Carbon Dioxide 22.7 mMol/L (20.0-31.0); Chloride 106 mMol/L (98-107); Globulin 3.2 gm/dL (2.3-3.5); Glucose 130 mg/dL (74-106); Osmolality,Calculated 280 (275-295); Potassium 4.2 mMol/L (3.4-5.1); Sodium 139 mMol/L (136-145); Total Protein 7.7 gm/dL (5.7-8.2); eGFR 58 See Note
[2024-05-10 17:27] LABS: Carcinoembryonic Antigen 1.6 ng/mL (0.0-5.0)
[2024-05-31 15:54] LABS: Collection Type, Urine Voided
[2024-05-31 16:06] LABS: Basophils % (Auto) 0 % (0-2.5); Eosinophils # (Auto) 0.1 Thou/mm3 (0.0-0.5); Eosinophils % (Auto) 2 % (0-10); Hematocrit 38.3 % (36.0-46.0); Hemoglobin 12.7 g/dL (12.0-16.0); Immature Granulocytes % (Auto) 0 % (0-0); Immature Granulocytes Auto 0.01 Thou/mm3 (0.00-0.00); Lymphocytes # (Auto) 1.9 Thou/mm3 (1.0-4.8); Lymphocytes % (Auto) 27 % (10-50); Mean Corpuscular HGB Conc 33.2 g/dl (31.0-37.0); Mean Corpuscular Hemoglobin 30.8 pg (25.0-35.0); Mean Corpuscular Volume 93 fL (80-100); Monocytes # (Auto) 0.4 Thou/mm3 (0.0-0.8); Monocytes % (Auto) 5 % (0-12); Neutrophils # (Auto) 4.6 Thou/mm3 (1.8-7.7); Neutrophils % (Auto) 66 % (37-80); Nucleated Red Blood Cell % 0 /100 WBC (0); Platelet Count 232 Thou/mm3 (140-440); RDW Standard Deviation 46.5 fL (36.4-46.3); Red Blood Count 4.12 Miln/mm3 (4.00-5.20); White Blood Count 6.9 Thou/mm3 (3.6-11.0)
[2024-05-31 16:18] LABS: Bilirubin,Urine Negative (Negative); Blood,Urine Negative (Negative); Clarity,Urine Clear (Clear/Hazy); Color,Urine Colorless (Lt Yel-Yel); Glucose, Urine 4+ (Negative); Ketones,Urine Negative (Negative); Leukocyte Esterase,Urine Negative (Negative); Nitrite,Urine Negative (Negative); Protein,Urine Negative (Neg - Trace); RBC,Urine < 1 /hpf (0-3); Specific Gravity,Urine 1.025 (1.001-1.035); Squamous Epithelial Cell,Urine 2 /hpf (0-5); Urobilinogen,Urine Negative mg/dL (0.0-1.0); WBC,Urine < 1 /hpf (0-5)
[2024-05-31 16:26] LABS: Alanine Aminotransferase 11 U/L (10-49); Albumin, Serum 4.3 gm/dL (3.4-4.8); Albumin/Globulin Ratio 1.3 (1.2-2.2); Alkaline Phosphatase 72 U/L (46-116); Anion Gap 11 (7-16); Aspartate Amino Transferase 15 U/L (0-34); BUN/Creatinine Ratio 21 Ratio (12-20); Bilirubin,Total 0.3 mg/dL (0.3-1.2); Blood Urea Nitrogen 21 mg/dL (9-23); Calcium 9.6 mg/dL (8.3-10.6); Calcium (Corrected) 9.6 mg/dL (8.5-10.1); Carbon Dioxide 23.9 mMol/L (20.0-31.0); Chloride 107 mMol/L (98-107); Globulin 3.3 gm/dL (2.3-3.5); Glucose 111 mg/dL (74-106); Osmolality,Calculated 287 (275-295); Potassium 4.1 mMol/L (3.4-5.1); Sodium 142 mMol/L (136-145); Total Protein 7.6 gm/dL (5.7-8.2); eGFR 58 See Note
[2024-05-31 16:41] LABS: Carcinoembryonic Antigen 1.6 ng/mL (0.0-5.0)
== END 2024-06-04 23:59 | disposition home or self-care (01) ==
LOC: SCTC 13:04
PROVIDERS: Internal Medicine Hematology & Oncology; PCP Family Medicine; Referring Provider Radiology Therapeutic Radiology; Visit Provider Radiology Therapeutic Radiology
DX: Z51.11 Encounter for antineoplastic chemotherapy (principal); C56.9 Malignant neoplasm of unspecified ovary; J91.0 Malignant pleural effusion; D64.9 Anemia, unspecified; I10 Essential (primary) hypertension; E11.9 Type 2 diabetes mellitus without complications; E78.00 Pure hypercholesterolemia, unspecified; E03.9 Hypothyroidism, unspecified; Z79.890 Hormone replacement therapy
CPT/HCPCS: 36591; 80053; 81001; 82378; 85025; 86304; 96413; A4216; J1642; J7050; Q5126

== ENCOUNTER → 2024-06-10 | Outpatient (CLI) | payer MEDICARE, MEDICAID, SELFPAY ==
--- NOTE | 2024-06-10 14:30 | ECHO_ITS ---
Transthoracic Echo Report Ht (in): 56 Wt (lb): 136 Exam Location: Echo Lab Status: Preadmit Photo Tube Assembler: PRAVEEN Roy^^^^ Indications: Procedure Performed: BP: 128 / 72 HR: 74 Rhythm: Sinus Technical Quality: Fair MEASUREMENTS (Male / Female) Normal Values 2D ECHO LV Diastolic Diameter PLAX 4.1 cm 4.2 - 5.9 / 3.9 - 5.3 cm LV Systolic Diameter PLAX 2.8 cm IVS Diastolic Thickness 0.9 cm 0.6 - 1.0 / 0.6 - 0.9 cm LVPW Diastolic Thickness 0.7 cm 0.6 - 1.0 / 0.6 - 0.9 cm LV Relative Wall Thickness 0.4 LVOT Diameter 1.7 cm Aortic Root Diameter 3.2 cm LA Systolic Diameter LX 2.1 cm 3.0 - 4.0 / 2.7 - 3.8 cm LV Ejection Fraction MOD BP 61.8 % >= 55 % LV Cardiac Index MOD BP 1471.3 cm?/min?m? LV Ejection Fraction MOD 4C 57.6 % LV Cardiac Index MOD 4C 1541.2 cm?/min?m? LV Ejection Fraction 4C AL 59.0 % LV Cardiac Index 4C AL 1653.6 cm?/min?m? LV Ejection Fraction MOD 2C 63.8 % LV Cardiac Index MOD 2C 1266.5 cm?/min?m? LV Ejection Fraction 2C AL 65.5 % LV Cardiac Index 2C AL 1317.5 cm?/min?m? LA Volume Index 14.1 cm?/m? 16 - 28 cm?/m? Ascending Aorta Diameter 2.8 cm DOPPLER AV Peak Velocity 126.0 cm/s AV Peak Gradient 6.4 mmHg AV Mean Gradient 4.0 mmHg AV Velocity Time Integral 26.8 cm AI Peak Velocity 224.0 cm/s AI Peak Gradient 20.1 mmHg AI Pressure Half Time 459.0 ms LVOT Peak Velocity 83.9 cm/s LVOT Peak Gradient 2.8 mmHg LVOT Velocity Time Integral 18.7 cm LVOT Cardiac Index 1976.3 cm?/min?m? AV Area Cont Eq vti 1.6 cm? AV Area Cont Eq pk 1.5 cm? MV Area PHT 2.3 cm? Mitral E Point Velocity 40.9 cm/s Mitral A Point Velocity 93.2 cm/s Mitral E to A Ratio 0.4 LV E' Lateral Velocity 6.2 cm/s Mitral E to LV E' Lateral Ratio 6.6 LV E' Septal Velocity 5.6 cm/s Mitral E to LV E' Septal Ratio 7.3 TR Peak Velocity 176.0 cm/s TR Peak Gradient 12.4 mmHg PV Peak Velocity 87.5 cm/s PV Peak Gradient 3.1 mmHg RVOT Peak Velocity 46.6 cm/s FINDINGS Left Ventricle Normal left ventricular size, wall thickness, systolic function with no obvious regional wall motion abnormalities. There is grade I diastolic dysfunction of the left ventricle (impaired relaxation pattern). The left ventricular ejection fraction is normal, estimated at 55-60%. Right Ventricle The right ventricle is normal in size and systolic function. The estimated right ventricular systolic pressure, 15 mmHg. Left Atrium The left atrium is normal by two-dimensional, color flow and Doppler imaging with no structural abnormalities, no thrombus formation present. Right Atrium The right atrium is normal by two-dimensional imaging, color flow and Doppler imaging with no structural abnormalities, no thrombus formation present. Atrial Septum The interatrial septum appears normal with no evidence of a shunt. Aorta The aorta is normal by two-dimensional, color flow and Doppler interrogation. Mitral Valve Trace to mild mitral regurgitation. Mild mitral annular calcification. Aortic Valve Mild thickening of the aortic valve leaflets. Trace to mild aortic valve regurgitation. Tricuspid Valve There is trace tricuspid valve regurgitation. Pulmonic Valve The pulmonic valve is not well visualized. Vessels The pulmonary artery appears normal. The inferior vena cava pulmonary and hepatic veins appear normal. Pericardium The pericardium is normal by two-dimensional imaging. There is no significant pericardial effusion. CONCLUSIONS transthoracic study is normal by two-dimensional, color flow imaging and Doppler interrogation. Normal left ventricular size and function. Approximate ejection fraction is 60%. Trace mitral and trace tricuspid regurgitation Debbie Bynum (Electronically Signed) Final Date: 10 June 2024 18:07
== END | disposition home or self-care (01) ==
PROVIDERS: PCP Family Medicine; Referring Provider Internal Medicine Hematology & Oncology; Visit Provider Internal Medicine Hematology & Oncology
DX: I08.1 Rheumatic disorders of both mitral and tricuspid valves (principal); C56.9 Malignant neoplasm of unspecified ovary
CPT/HCPCS: 93306

== ENCOUNTER → 2024-06-15 | Outpatient (CLI) | payer MEDICARE, MEDICAID, SELFPAY ==
--- NOTE | 2024-06-15 14:30 | XR_ITS ---
Examination: CT chest with intravenous contrast CT abdomen with intravenous contrast CT pelvis with intravenous contrast 2-D coronal and sagittal reconstructions Time of exam: June 15, 2024 at 1426 hrs. Comparison February 05, 2024. Indications: Diagnosis ovarian carcinoma, surgery August 2023, restaging CTDI: vol (mGy) : 13.7 DLP: (mGycm): 520 Technique: Multiple axial images of the chest, abdomen and pelvis with intravenous contrast, 3.0 mm slice thickness. Images obtained post intravenous injection Isovue 370 60 cc. 2-D sagittal and coronal reconstructions. Low dose protocols were performed. One or more of the following dose reduction techniques were used; automated exposure control, adjustment of the mA and/or KV according to patient size, use of iterative reconstruction technique. Findings: No thoracic aortic aneurysm dilatation No pulmonary artery filling defects No mediastinal lymphadenopathy 4 mm pulmonary nodule right upper lobe image 107 6 mm pulmonary nodule left lower lobe image 153 Atelectasis left lower lobe with minimal right pleural disease Cirrhosis, liver nodular in contour with mild ascites No gallstones Spleen is not enlarged No pancreatic mass Minimal nodular thickening both adrenal glands No hydronephrosis No periaortic pericaval lymphadenopathy Normal appendix No bowel obstruction No pelvic mass Urinary bladder intact Severe osteopenia Impression: Interval noncalcified pulmonary nodules as above, with this study as baseline recommend continued 6 month follow-up CT chest without contrast Cirrhosis, mild ascites No interval abdominal or pelvic lymphadenopathy
== END | disposition home or self-care (01) ==
LOC: CCTX 13:44
PROVIDERS: PCP Family Medicine; Referring Provider Internal Medicine Hematology & Oncology; Visit Provider Internal Medicine Hematology & Oncology
DX: R91.8 Other nonspecific abnormal finding of lung field (principal); K70.31 Alcoholic cirrhosis of liver with ascites; C56.9 Malignant neoplasm of unspecified ovary
CPT/HCPCS: 71260; 74177; A4649; Q9967

== ENCOUNTER → 2024-06-22 | Outpatient (CLI) | payer MEDICARE, MEDICAID, SELFPAY ==
--- NOTE | 2024-06-22 14:08 | XR_ITS ---
Examination: PA lateral chest 2 views TECHNIQUE: Upright PA lateral chest 2 views Exam date and time: June 22, 2024 1524 hours Comparison September 18, 2023 INDICATIONS: Diagnosis malignant neoplasm ovary FINDINGS: Normal heart size Enlarged ectatic thoracic aorta Bibasilar subsegmental atelectasis No lobar pneumonia Right internal jugular Port-A-Cath tip SVC satisfactory position Reverse right shoulder arthroplasty IMPRESSION: Bibasilar subsegmental atelectasis No mediastinal lymphadenopathy No pulmonary nodules identified
== END | disposition home or self-care (01) ==
PROVIDERS: PCP Family Medicine; Referring Provider Internal Medicine Hematology & Oncology; Visit Provider Internal Medicine Hematology & Oncology
DX: J98.11 Atelectasis (principal); C56.9 Malignant neoplasm of unspecified ovary
CPT/HCPCS: 71046

== ENCOUNTER 2024-06-29 13:27 | Outpatient (RCR) | payer MEDICARE, MEDICAID, SELFPAY ==
[2024-06-18 09:15] LABS: Collection Type, Urine Voided
[2024-06-18 09:19] LABS: Basophils % (Auto) 1 % (0-2.5); Eosinophils # (Auto) 0.2 Thou/mm3 (0.0-0.5); Eosinophils % (Auto) 3 % (0-10); Hematocrit 37.7 % (36.0-46.0); Immature Granulocytes % (Auto) 0 % (0-0); Immature Granulocytes Auto 0.02 Thou/mm3 (0.00-0.00); Lymphocytes % (Auto) 29 % (10-50); Mean Corpuscular HGB Conc 31.8 g/dl (31.0-37.0); Mean Corpuscular Hemoglobin 30.2 pg (25.0-35.0); Mean Corpuscular Volume 95 fL (80-100); Monocytes # (Auto) 0.5 Thou/mm3 (0.0-0.8); Monocytes % (Auto) 7 % (0-12); Neutrophils # (Auto) 4.3 Thou/mm3 (1.8-7.7); Neutrophils % (Auto) 61 % (37-80); Nucleated Red Blood Cell % 0 /100 WBC (0); Platelet Count 182 Thou/mm3 (140-440); RDW Standard Deviation 50.2 fL (36.4-46.3); Red Blood Count 3.98 Miln/mm3 (4.00-5.20); White Blood Count 7.1 Thou/mm3 (3.6-11.0)
[2024-06-18 09:23] LABS: Bilirubin,Urine Negative (Negative); Blood,Urine Trace-Intact (Negative); Glucose, Urine 3+ (Negative); Ketones,Urine Negative (Negative); Leukocyte Esterase,Urine 1+ (Negative); Nitrite,Urine Negative (Negative); Protein,Urine Negative (Neg - Trace); Specific Gravity,Urine 1.025 (1.001-1.035); Urobilinogen,Urine 0.2 mg/dL (0.0-1.0)
[2024-06-18 09:26] LABS: Clarity,Urine Hazy (Clear/Hazy); Color,Urine Lt Yellow (Lt Yel-Yel)
[2024-06-18 09:38] LABS: Bacteria,Urine Rare; RBC,Urine 2 /hpf (0-3); Squamous Epithelial Cell,Urine 2 /hpf (0-5); WBC,Urine 10 /hpf (0-5)
[2024-06-18 09:49] LABS: Carcinoembryonic Antigen 2.9 ng/mL (0.0-5.0)
[2024-06-18 10:02] LABS: Alanine Aminotransferase 13 U/L (10-49); Albumin/Globulin Ratio 1.4 (1.2-2.2); Alkaline Phosphatase 58 U/L (46-116); Anion Gap 10 (7-16); Aspartate Amino Transferase < 10 U/L (0-34); BUN/Creatinine Ratio 17 Ratio (12-20); Bilirubin,Total 0.4 mg/dL (0.3-1.2); Blood Urea Nitrogen 17 mg/dL (9-23); Calcium 8.9 mg/dL (8.3-10.6); Calcium (Corrected) 8.9 mg/dL (8.5-10.1); Carbon Dioxide 24.9 mMol/L (20.0-31.0); Chloride 108 mMol/L (98-107); Globulin 2.9 gm/dL (2.3-3.5); Glucose 92 mg/dL (74-106); Osmolality,Calculated 286 (275-295); Potassium 4.2 mMol/L (3.4-5.1); Sodium 143 mMol/L (136-145); Total Protein 6.9 gm/dL (5.7-8.2); eGFR 58 See Note
[2024-06-28 14:13] LABS: Collection Type, Urine Voided; RBC,Urine 0 /hpf (0-3)
[2024-06-28 14:24] LABS: Basophils % (Auto) 0 % (0-2.5); Eosinophils # (Auto) 0.1 Thou/mm3 (0.0-0.5); Eosinophils % (Auto) 1 % (0-10); Hemoglobin 12.7 g/dL (12.0-16.0); Immature Granulocytes % (Auto) 0 % (0-0); Immature Granulocytes Auto 0.01 Thou/mm3 (0.00-0.00); Lymphocytes # (Auto) 1.7 Thou/mm3 (1.0-4.8); Lymphocytes % (Auto) 30 % (10-50); Mean Corpuscular HGB Conc 32.6 g/dl (31.0-37.0); Mean Corpuscular Hemoglobin 30.1 pg (25.0-35.0); Mean Corpuscular Volume 92 fL (80-100); Monocytes # (Auto) 0.4 Thou/mm3 (0.0-0.8); Monocytes % (Auto) 6 % (0-12); Neutrophils # (Auto) 3.5 Thou/mm3 (1.8-7.7); Neutrophils % (Auto) 62 % (37-80); Nucleated Red Blood Cell % 0 /100 WBC (0); Platelet Count 199 Thou/mm3 (140-440); RDW Standard Deviation 50.9 fL (36.4-46.3); Red Blood Count 4.22 Miln/mm3 (4.00-5.20); White Blood Count 5.6 Thou/mm3 (3.6-11.0)
[2024-06-28 14:31] LABS: Bilirubin,Urine Negative (Negative); Blood,Urine Negative (Negative); Clarity,Urine Clear (Clear/Hazy); Color,Urine Lt-Yellow (Lt Yel-Yel); Glucose, Urine 4+ (Negative); Ketones,Urine Negative (Negative); Leukocyte Esterase,Urine Negative (Negative); Nitrite,Urine Negative (Negative); Protein,Urine Trace (Neg - Trace); Squamous Epithelial Cell,Urine 2 /hpf (0-5); Urobilinogen,Urine Negative mg/dL (0.0-1.0); WBC,Urine < 1 /hpf (0-5)
[2024-06-28 14:38] LABS: Alanine Aminotransferase 12 U/L (10-49); Albumin/Globulin Ratio 1.3 (1.2-2.2); Alkaline Phosphatase 57 U/L (46-116); Anion Gap 10 (7-16); Aspartate Amino Transferase 15 U/L (0-34); BUN/Creatinine Ratio 13 Ratio (12-20); Bilirubin,Total 0.5 mg/dL (0.3-1.2); Blood Urea Nitrogen 13 mg/dL (9-23); Calcium 9.4 mg/dL (8.3-10.6); Calcium (Corrected) 9.4 mg/dL (8.5-10.1); Carbon Dioxide 23.1 mMol/L (20.0-31.0); Chloride 108 mMol/L (98-107); Globulin 3.2 gm/dL (2.3-3.5); Glucose 129 mg/dL (74-106); Osmolality,Calculated 283 (275-295); Potassium 3.8 mMol/L (3.4-5.1); Sodium 141 mMol/L (136-145); Total Protein 7.2 gm/dL (5.7-8.2); eGFR 58 See Note
[2024-06-28 14:47] LABS: Carcinoembryonic Antigen 2.3 ng/mL (0.0-5.0)
== END 2024-07-05 23:59 | disposition home or self-care (01) ==
LOC: SCTC 13:27
PROVIDERS: PCP Family Medicine; Referring Provider Family Medicine; Visit Provider Internal Medicine Hematology & Oncology
DX: Z51.11 Encounter for antineoplastic chemotherapy (principal); C56.9 Malignant neoplasm of unspecified ovary; J91.0 Malignant pleural effusion; R18.8 Other ascites; D64.9 Anemia, unspecified; I10 Essential (primary) hypertension; E11.9 Type 2 diabetes mellitus without complications; E78.00 Pure hypercholesterolemia, unspecified; E03.9 Hypothyroidism, unspecified; Z79.890 Hormone replacement therapy; Z79.84 Long term (current) use of oral hypoglycemic drugs
CPT/HCPCS: 36591; 80053; 81001; 82378; 85025; 86304; 96365; 96375; 96413; 99212; A4216; J1642; J2916; J2919; J3490; J7040; J7050; Q5126; G0463

== ENCOUNTER → 2024-07-19 | Outpatient (CLI) | payer MEDICARE, MEDICAID, SELFPAY ==
[2024-07-19 10:47] LABS: Basophils % (Auto) 1 % (0-2.5); Eosinophils # (Auto) 0.2 Thou/mm3 (0.0-0.5); Eosinophils % (Auto) 2 % (0-10); Hematocrit 45.5 % (36.0-46.0); Hemoglobin 14.6 g/dL (12.0-16.0); Immature Granulocytes % (Auto) 0 % (0-0); Immature Granulocytes Auto 0.03 Thou/mm3 (0.00-0.00); Lymphocytes # (Auto) 2.1 Thou/mm3 (1.0-4.8); Lymphocytes % (Auto) 28 % (10-50); Mean Corpuscular HGB Conc 32.1 g/dl (31.0-37.0); Mean Corpuscular Volume 94 fL (80-100); Monocytes # (Auto) 0.6 Thou/mm3 (0.0-0.8); Monocytes % (Auto) 8 % (0-12); Neutrophils # (Auto) 4.7 Thou/mm3 (1.8-7.7); Neutrophils % (Auto) 61 % (37-80); Nucleated Red Blood Cell % 0 /100 WBC (0); Platelet Count 218 Thou/mm3 (140-440); RDW Standard Deviation 55.8 fL (36.4-46.3); Red Blood Count 4.86 Miln/mm3 (4.00-5.20); White Blood Count 7.7 Thou/mm3 (3.6-11.0)
[2024-07-19 10:53] LABS: Alanine Aminotransferase 15 U/L (10-49); Albumin, Serum 4.3 gm/dL (3.4-4.8); Albumin/Globulin Ratio 1.3 (1.2-2.2); Alkaline Phosphatase 74 U/L (46-116); Anion Gap 8 (7-16); Aspartate Amino Transferase 14 U/L (0-34); BUN/Creatinine Ratio 14 Ratio (12-20); Bilirubin,Total 0.6 mg/dL (0.3-1.2); Blood Urea Nitrogen 17 mg/dL (9-23); Calcium 9.4 mg/dL (8.3-10.6); Calcium (Corrected) 9.4 mg/dL (8.5-10.1); Carbon Dioxide 27.1 mMol/L (20.0-31.0); Chloride 106 mMol/L (98-107); Creatinine (Component) 1.2 mg/dL (0.6-1.3); Globulin 3.3 gm/dL (2.3-3.5); Glucose 141 mg/dL (74-106); Osmolality,Calculated 284 (275-295); Sodium 141 mMol/L (136-145); Total Protein 7.6 gm/dL (5.7-8.2); eGFR 47 See Note
== END | disposition home or self-care (01) ==
LOC: SCTO 10:01
PROVIDERS: PCP Family Medicine; Referring Provider Internal Medicine Hematology & Oncology; Visit Provider Internal Medicine Hematology & Oncology
DX: C56.9 Malignant neoplasm of unspecified ovary (principal)
CPT/HCPCS: 36415; 80053; 85025; 86304

== ENCOUNTER 2024-08-03 12:58 | Outpatient (RCR) | payer MEDICARE, MEDICAID, SELFPAY ==
[2024-07-19 14:11] LABS: Collection Type, Urine Voided
[2024-07-19 14:31] LABS: Bilirubin,Urine Negative (Negative); Blood,Urine Negative (Negative); Clarity,Urine Clear (Clear/Hazy); Color,Urine Lt-Yellow (Lt Yel-Yel); Glucose, Urine 4+ (Negative); Ketones,Urine Negative (Negative); Leukocyte Esterase,Urine Positive (Negative); Nitrite,Urine Negative (Negative); Protein,Urine Negative (Neg - Trace); RBC,Urine 2 /hpf (0-3); Squamous Epithelial Cell,Urine 2 /hpf (0-5); Urobilinogen,Urine Negative mg/dL (0.0-1.0); WBC,Urine 4 /hpf (0-5)
[2024-07-20 14:33] LABS: Carcinoembryonic Antigen 2.2 ng/mL (0.0-5.0)
== END 2024-08-04 23:59 | disposition home or self-care (01) ==
LOC: SCTC 12:58
PROVIDERS: PCP Family Medicine; Referring Provider Family Medicine; Visit Provider Internal Medicine Hematology & Oncology
DX: Z51.11 Encounter for antineoplastic chemotherapy (principal); C56.9 Malignant neoplasm of unspecified ovary; J91.0 Malignant pleural effusion; R18.8 Other ascites; I10 Essential (primary) hypertension; E78.00 Pure hypercholesterolemia, unspecified; D64.9 Anemia, unspecified; E11.9 Type 2 diabetes mellitus without complications; Z79.84 Long term (current) use of oral hypoglycemic drugs; E03.9 Hypothyroidism, unspecified
CPT/HCPCS: 80053; 81001; 82378; 85025; 86304; 96365; 96413; A4216; J1642; J2916; J2919; J3490; J7040; J7050; Q5126

== ENCOUNTER 2024-08-31 13:03 | Outpatient (RCR) | payer MEDICARE, MEDICAID, SELFPAY ==
[2024-08-09 15:55] LABS: Collection Type, Urine Voided
[2024-08-09 16:00] LABS: Basophils % (Auto) 1 % (0-2.5); Eosinophils # (Auto) 0.2 Thou/mm3 (0.0-0.5); Eosinophils % (Auto) 3 % (0-10); Hematocrit 39.3 % (36.0-46.0); Hemoglobin 13.3 g/dL (12.0-16.0); Immature Granulocytes % (Auto) 0 % (0-0); Immature Granulocytes Auto 0.02 Thou/mm3 (0.00-0.00); Lymphocytes # (Auto) 1.9 Thou/mm3 (1.0-4.8); Lymphocytes % (Auto) 26 % (10-50); Mean Corpuscular HGB Conc 33.8 g/dl (31.0-37.0); Mean Corpuscular Volume 92 fL (80-100); Monocytes # (Auto) 0.5 Thou/mm3 (0.0-0.8); Monocytes % (Auto) 6 % (0-12); Neutrophils # (Auto) 4.7 Thou/mm3 (1.8-7.7); Neutrophils % (Auto) 64 % (37-80); Nucleated Red Blood Cell % 0 /100 WBC (0); Platelet Count 190 Thou/mm3 (140-440); RDW Standard Deviation 55.7 fL (36.4-46.3); Red Blood Count 4.29 Miln/mm3 (4.00-5.20); White Blood Count 7.3 Thou/mm3 (3.6-11.0)
[2024-08-09 16:20] LABS: Alanine Aminotransferase 10 U/L (10-49); Albumin, Serum 4.1 gm/dL (3.4-4.8); Albumin/Globulin Ratio 1.4 (1.2-2.2); Alkaline Phosphatase 67 U/L (46-116); Anion Gap 11 (7-16); Aspartate Amino Transferase 12 U/L (0-34); BUN/Creatinine Ratio 19 Ratio (12-20); Bilirubin,Total 0.4 mg/dL (0.3-1.2); Blood Urea Nitrogen 25 mg/dL (9-23); Calcium 8.5 mg/dL (8.3-10.6); Calcium (Corrected) 8.5 mg/dL (8.5-10.1); Carbon Dioxide 20.7 mMol/L (20.0-31.0); Carcinoembryonic Antigen 2.2 ng/mL (0.0-5.0); Chloride 108 mMol/L (98-107); Creatinine (Component) 1.3 mg/dL (0.6-1.3); Globulin 2.9 gm/dL (2.3-3.5); Glucose 204 mg/dL (74-106); Osmolality,Calculated 289 (275-295); Potassium 4.3 mMol/L (3.4-5.1); Sodium 140 mMol/L (136-145); eGFR 43 See Note
[2024-08-09 16:26] LABS: Bilirubin,Urine Negative (Negative); Blood,Urine Negative (Negative); Budding Yeast,Urine Present; Clarity,Urine Clear (Clear/Hazy); Color,Urine Lt-Yellow (Lt Yel-Yel); Glucose, Urine 4+ (Negative); Ketones,Urine Negative (Negative); Leukocyte Esterase,Urine Positive (Negative); Nitrite,Urine Negative (Negative); Protein,Urine Negative (Neg - Trace); RBC,Urine < 1 /hpf (0-3); Specific Gravity,Urine 1.027 (1.001-1.035); Squamous Epithelial Cell,Urine 5 /hpf (0-5); Urobilinogen,Urine Negative mg/dL (0.0-1.0); WBC,Urine 1 /hpf (0-5)
--- NOTE | 2024-08-15 21:58 | CTCFLWUP_ITS ---
Patient: AARON OSMAN : 1950 Page 9 of 12 FOLLOW UP NOTE DATE OF SERVICE: 08/12/2024 NAME: AARON OSMAN ACCOUNT: [id number] : 1950 AGE: 74 INTERVAL HISTORY: Subjective: Chief Complaint Follow-up after chemotherapy, ongoing cancer management History of Present Illness Dawson severino is a patient with a history of cancer who completed 18 weeks of carboplatin, Taxol, and bevacizumab chemotherapy on June 21. The patient reports feeling better since stopping chemotherapy, which had been causing significant fatigue. The patient is continuing to take denosumab, with the most recent dose administered on August 10. She has been experiencing ongoing gastrointestinal issues, for which an endoscopy and colonoscopy were recommended in June, but have not yet been completed despite multiple follow-up calls. The patient's overall health status has improved since discontinuing chemotherapy, which was stopped due to the patient feeling miserable. The focus has shifted to improving diet, gaining muscle mass, exercising, and getting stronger during this break from chemotherapy. However, it is noted that chemotherapy may need to be resumed in the future depending on disease progression. Medical History - Cancer (type not specified) treated with carboplatin, Taxol, and bevacizumab Medications and Supplements - Carboplatin - Part of 18-week regimen with Taxol and bevacizumab. - Discontinued due to patient feeling miserable. - Taxol - Part of 18-week regimen with carboplatin and bevacizumab. - Discontinued due to patient feeling miserable. - Bevacizumab - Part of 18-week regimen with carboplatin and Taxol. - Discontinued due to patient feeling miserable. - Denosumab - Taken on August 10. Social History - Exercise: Recommendation to improve exercise habits and gain muscle mass - Diet: Recommendation to improve diet Review of Systems General: Positive for fatigue. Objective: Laboratory, Imaging, and Diagnostic Test Results - CA125: 89 (previous result, date not specified) - CA: 2.2 (date not specified) - Denosumab: Administered on 08/10/2024 03/23/2013: Ms. Osman had the following surgery done at [facility]. 05/10/2013 - 08/23/2013: Ms. Osman received 6 cycles of adjuvant carboplatin and paclitaxel here at [facility]. 08/25/2023: Patient had chest x-rays done due to persistent cough 08/27/2023 CT scan of the chest with and without contrast was obtained 09/02/2023: Ms. Osman had ultrasound-guided left thoracentesis. 1025 cc of pleural fluid was removed. 09/10/2023: CT scan of the abdomen and pelvis with and without IV contrast 09/10/2023: Transvaginal ultrasound 09/18/2023: Ms. Osman had left-sided thoracentesis 10/04/2023: PET/CT scan? 10/27/2023: CA 125 is 874.0 10/28/2023: Ms. Osman received first weekly dose of Taxol and carboplatin. 11/04/2023: CA 125 is 513. 11/04/2023: Ms. Osman received second dose of weekly Taxol and carboplatin. 11/10/2023: CA 125 is 390. 02/05/2024: CT of chest abdomen and pelvis with contrast, essentially negative, no evidence for mass, no abdominal or pelvic lymphadenopathy 02/17/2024: CA125 169.0 03/08/2024: CEA 125 is 175.0 ONCOLOGY HISTORY:?[facility] Hx? Patient completed 18 cycles of carboplatin and Taxol on 03/02/2024. Patient started bevacizumab 15 mg/kg on 03/09/2024. Patient reports increased energy level since she completed carboplatin and Taxol and started bevacizumab. Previously levothyroxine was increased to 37.5mcg, started new dosage on . CA125 was 175 on 03/08/2024. Patient reports good appetite. Ambulating well without assistance. Patient denies neuropathy. INTERVAL HISTORY: PREVIOUS NOTES: Ms. Osman is here at [facility] accompanied by her daughter, Shubham. Patient completed cycle 16 of weekly dose of carboplatin and Taxol. CA125 is 169.0. CT of chest abdomen and pelvis with contrast done on 02/05/2024 showed no liver lesions, no adnexal mass, no abdominal or pelvic lymphadenopathy. TSH is 7.07 T4 is 1.40, 02/13/2024. Patient is taking levothyroxine 25 mcg daily. Unfortunately, iron saturation ferritin B12 were not collected, hemoglobin 10.2, MCV 99. Patient complaining of feeling tired. Patient denies neuropathy. Patient reports good appetite. Patient denies any other concerns or complaints. She denies any cough, chest pain, abdominal pain or leg cramps. Ambulating well without any help. HISTORY: Aaron Osman is a 74-year-old SPA speaking female with history of type 2 diabetes, hypertension, hypercholesterolemia has the following oncology history. 02/16/2013: CA 125 is 319.9. 02/17/2013: Transvaginal entrance abdominal ultrasound? 03/23/2013: Ms. Osman had the following surgery done at [facility]. 05/10/2013 - 08/23/2013: Ms. Osman received 6 cycles of adjuvant carboplatin and paclitaxel here at [facility]. 08/25/2023: Patient had chest x-rays done due to persistent cough 08/27/2023 CT scan of the chest with and without contrast was obtained 09/02/2023: Ms. Osman had ultrasound-guided left thoracentesis. 1025 cc of pleural fluid was removed. 09/10/2023: CT scan of the abdomen and pelvis with and without IV contrast 09/10/2023: Transvaginal ultrasound 09/18/2023: Ms. Osman had left-sided thoracentesis 10/04/2023: PET/CT scan? 10/27/2023: CA 125 is 874.0 10/28/2023: Ms. Osman received first weekly dose of Taxol and carboplatin. 11/04/2023: CA 125 is 513. 11/04/2023: Ms. Osman received second dose of weekly Taxol and carboplatin. 11/10/2023: CA 125 is 390. 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 S/p adjuvant chemotherapy with Taxol and carboplatin (05/10/2013 - 08/23/2013) s/p Taxol and carboplatin 18 cycles completed 03/02/2024. Bevacizumab 15 mg/kg every 3 weeks started on 03/09/2024 Type 2 diabetes without any peripheral neuropathy. Hypertension. Hypercholesterolemia. DATE OF DIAGNOSIS: 09/02/2023 STAGE/TNM: IIIC T3b N1 M0 TREATMENT HISTORY: Care?Plan Start?Date Cycle Day Intent CARBOplatin?AUC?6,?PACLItaxel?175?-?Rec?or?Met 05/10/2013 1 21 Curative?(adjuvant) CARBOplatin?AUC?6,?PACLItaxel?175?-?Rec?or?Met 05/10/2013 1 21 Curative?(adjuvant) PACLItaxel?60mg/m*2?+?Carboplatin?AUC?2?-weekly?x?18weeks?2 10/28/2023 1 7 Palliative Bevacizumab?15?mg/kg?-?Met 03/09/2024 1 21 Palliative FERRlecit?she 06/08/2024 1 7 Maintenance HISTORY OF PRESENT ILLNESS: OTHER MEDICAL HISTORY/CONDITIONS: Ovarian cancer - dx 03/2013 HTN Diabetes Hypothyroid Hyperlipidemia ANH-BSO - 03/23/2013 x 3 Total right shoulder replacement - 10/2022- Dr. Claudio FAMILY HISTORY: Cancer?History:?Denies Patient?denies?family?cancer?history. SOCIAL HISTORY: Occupational?History:?Retired Education?Level:?Completed something less than 8th grade Marital?Status:? Tobacco Use:?Quit 50-60yrs ago - Socially ETOH?Use:?Denies Drug?Note:?Denies Social?History?Note:?Lives?with? [employer] HISTORY: Menarche?-?Age:?12 Menopause:?53 :?5 Live?Births:?5 Age?1st?:?24 MEDICATIONS: 1. Albuterol Sulfate HFA - 90 mcg/Actuation 2 Puff(s) Every 4 Hours 2. Augmentin - 500-125 mg 1 tab twice Daily 3. Crestor - 20 mg 1 tab Daily 4. glyBURIDE-metformin - 2.5-500 mg 1 tab Daily 5. Lasix - 20 mg 1 tab po q daily 6. levothyroxine - 37.5 mcg 1 Capsule Daily 7. lisinopril - 20 mg 1 tab Daily 8. lisinopril - 10 mg 1 tab Daily 9. Protonix - 40 mg 1 tab Daily 10. Tradjenta - 5 mg 1 tab Daily?Palabra Meds? Medications Last Reconciled by Amber Moran MD on 08/12/2024 ALLERGIES: No Known Drug Allergies REVIEW OF SYSTEMS: A complete 14-point review of systems was performed and is negative except as noted in interval history. PHYSICAL EXAMINATION:?[facility] PE? VITAL SIGNS: Temperature?97.8, B/P?149/69, Oxygen?Saturation?96% Weight?136?lbs (Change?since?08/10/24:?1.4?lbs) PAIN: 0 - No pain NEURO: Alert and oriented x4 EYE: Conjunctivae is white CHEST: Clear to auscultation. No wheezes or rales audible. Right sided chemo port. CARDIAC: Rhythm regular. EXTREMITIES: No pedal edema or cyanosis. LABORATORY DATA: I have personally reviewed and interpreted each of the patient?s relevant lab tests, abnormal findings are below: Date 07/20/24 08/09/24 ??WHITE?BLOOD?COUNT?(Thou/mm3) ? 7.3 ??RED?BLOOD?COUNT?(Miln/mm3) ? 4.29 ??HEMOGLOBIN?(gm/dl) ? 13.3 ??HEMATOCRIT?(%) ? 39.3 ??PLATELET?COUNT?(Thou/mm3) ? 190 ??NEUTROPHILS?%,?AUTO?(%) ? 64 ??LYMPH?%,?AUTO?(%) ? 26 ??NEUTROPHILS,?AUTO?(Thou/mm3) ? 4.7 ??GLUCOSE,RANDOM?(mg/dL) ? 204?H ??BLOOD?UREA?NITROGEN?(mg/dL) ? 25?H ??CREATININE?(mg/dL) ? 1.30 ??SODIUM?(mmol/L) ? 140 ??POTASSIUM?(mmol/L) ? 4.3 ??CHLORIDE?(mmol/L) ? 108?H ??CrCl?(CandG)?(ml/min) ? 36.17 ??AST/SGOT?(Unit/L) ? 12 ??ALT/SGPT?(Unit/L) ? 10 ??ALKALINE?PHOSPHATASE?(Unit/L) ? 67 ??BILIRUBIN,?TOTAL?(mg/dL) ? 0.4 ??PROTEIN?TOTAL?(gm/dl) ? 7.0 ??ALBUMIN,?SERUM?(gm/dl) ? 4.1 ??GLOBULIN?(gm/dl) ? 2.9 ??ALBUMIN/GLOBULIN?RATIO ? 1.4 ??CALCIUM,?SERUM?(mg/dL) ? 8.5 ??CALCIUM?SERUM?(CORRECTED)?(mg/dL) ? 8.5 ??CEA?(O*)?(ng/ml) 2.2 2.2 ASSESSMENT/PLAN:?Juan Dominguez Assessment/Plan? #1 metastatic ovarian cancer Patient had malignant pleural effusion as well as ascites fluid left-sided thoracentesis (09/18/2023) Patient had thoracentesis (09/02/2023). 1025 cc of pleural fluid was removed. metastatic ovarian carcinoma with left-sided malignant pleural effusion (09/02/2023), and ascites her CA125 decreased to 163. Abdominal distention and discomfort also significantly improved. CA125 is 175.0 on 03/08/2024 Patient complained of fatigue and tiredness along with some shaking since when she started chemotherapy, shaking has resolved. Chemo was stopped . she was started on NIKKY CT chest abdomen and pelvis with contrast to evaluate status of her disease essentially negative, no adnexal mass, no abdominal or pelvic lymphadenopathy, 02/05/2024. Complete chemotherapy, 18 cycles Taxol and carboplatin, 03/02/2024 Echo 06/2024is good. Ct 06/2024 is stable Started Bevacizumab (Avastin) 15mg/kg on 03/09/2024, cycles every 3 weeks. Patient reports increased energy levels since she started bevacizumab CBC CMP CA125 prior to next follow-up appointment. 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 Will continue closely monitoring #3 anemia Likely from chemotherapy with carboplatin Iron saturation 53%, ferritin 54, B12 366, folate 10.19 Anemia panel prior to next follow-up appointment #4 hypertension and diabetes mellitus type 2 Advised to continue follow-up with PCP Blood pressure well-controlled #5 hypercholesterolemia Continue follow with PCP #6 hypothyroidism Levothyroxine increased to 37.5mcg daily from 25mcg daily, started new dosage on 03/08/2024 TSH was checked to make sure patient is not having iatrogenic thyrotoxicosis TSH 7.07 on 02/13/2024. TSH T4 prior to next follow-up appointment Assessment and Plan: Dawson severino, a patient with a history of cancer, recently completed 18 weeks of carboplatin, Taxol, and bevacizumab chemotherapy, and is currently on denosumab. Cancer (unspecified type) Assessment: Patient completed 18 weeks of carboplatin, Taxol, and bevacizumab chemotherapy on June 21. Chemotherapy was discontinued due to patient experiencing significant fatigue and overall poor quality of life ( miserable ). Current CA-125 level is unknown, but the last recorded value was 89. A recent CA test result was 2.2. Continuing denosumab therapy, with the most recent dose administered on August 10. Genetic testing ([employer]) has been approved but not yet completed. A Haley test has been ordered to gather additional information about the cancer status without relying on scans. Plan: - Order CA-125 test to monitor cancer status - Proceed with Haley blood test - Continue denosumab therapy (frequency not specified) - Re-order [facility] genetic testing - Monitor CA-125 levels; if levels increase, consider restarting chemotherapy - Encourage improved diet, exercise, and muscle mass gain during chemotherapy break - Follow up on H-pylori test results with nursing staff Gastrointestinal concerns Assessment: Patient was referred for endoscopy and colonoscopy on June 21 due to unspecified gastrointestinal concerns. The referral has not yet been completed despite multiple follow-up calls. An H-pylori test was ordered, but results are pending. Plan: - Follow up on gastroenterology referral for endoscopy and colonoscopy - Obtain results of H-pylori serum antigen testHISTORY: Aaron Osman is a 74-year-old S[place] speaking female with history of type 2 diabetes, hypertension, hypercholesterolemia has the following oncology history. 02/16/2013: CA 125 is 319.9. 02/17/2013: Transvaginal entrance abdominal ultrasound? CBC and CMP today or tomorrow CT CAP With Contrast ORDERS: Order # Description [id number] Comprehensive Metabolic Panel + CBC with Auto Diff + CEA + Urinalysis, Automated with Microscopy [id number] Follow Up Appointment [id number] Infusion 1 Hour [id number] Comprehensive Metabolic Panel + CBC with Auto Diff + CEA + Urinalysis, Automated with Microscopy [id number] Follow Up Appointment [id number] Infusion 1 Hour [id number] Comprehensive Metabolic Panel + CBC with Auto Diff + CEA + Urinalysis, Automated with Microscopy [id number] Follow Up Appointment [id number] Infusion 1 Hour [id number] Comprehensive Metabolic Panel + CBC with Auto Diff + CEA + Urinalysis, Automated with Microscopy [id number] Follow Up Appointment [id number] Infusion 1 Hour [id number] Comprehensive Metabolic Panel + CBC with Auto Diff + CEA + Urinalysis, Automated with Microscopy [id number] Follow Up Appointment RETURN TO CLINIC: BILLING AND COMPLIANCE: I reviewed external records from providers outside my specialty as summarized above. I spent a total of 50 minutes on this patient?s care on the day of their visit excluding time spent related to any billed procedures. This time includes time spent with the patient as well as time spent documenting in the medical record, reviewing patients records and tests, obtaining history, placing orders, communicating with other healthcare professionals, counseling the patient, family or caregiver, and/or care coordination for the diagnoses above. Electronically Signed by: Kyle Dominguez MD T: 9:55 PM CC: PCP: Amber Segura Referring: Amber Segura This document was completed utilizing speech recognition software. Grammatical errors, random word insertions, pronoun errors, and incomplete sentences are an occasional consequence of this system due to software limitations, ambient noise, and hardware issues. Any formal questions or concerns about the content, text or information contained within the body of this dictation should be directly addressed to the provider for clarification.
[2024-08-27 11:52] LABS: Basophils # (Auto) 0.1 Thou/mm3 (0.0-0.2); Basophils % (Auto) 1 % (0-2.5); Eosinophils # (Auto) 0.2 Thou/mm3 (0.0-0.5); Eosinophils % (Auto) 1 % (0-10); Hematocrit 42.1 % (36.0-46.0); Hemoglobin 14.3 g/dL (12.0-16.0); Immature Granulocytes % (Auto) 0 % (0-0); Immature Granulocytes Auto 0.04 Thou/mm3 (0.00-0.00); Lymphocytes # (Auto) 2.4 Thou/mm3 (1.0-4.8); Lymphocytes % (Auto) 22 % (10-50); Mean Corpuscular Volume 91 fL (80-100); Monocytes # (Auto) 0.8 Thou/mm3 (0.0-0.8); Monocytes % (Auto) 7 % (0-12); Neutrophils # (Auto) 7.7 Thou/mm3 (1.8-7.7); Neutrophils % (Auto) 69 % (37-80); Nucleated Red Blood Cell % 0 /100 WBC (0); Platelet Count 191 Thou/mm3 (140-440); RDW Standard Deviation 53.4 fL (36.4-46.3); Red Blood Count 4.62 Miln/mm3 (4.00-5.20); White Blood Count 11.1 Thou/mm3 (3.6-11.0)
[2024-08-27 11:55] LABS: Glucose Estimated Average 117 mg/dL (80-131); Hemoglobin A1C 5.7 % Hgb (4.8-6.0)
[2024-08-27 12:02] LABS: Collection Type, Urine Voided
[2024-08-27 12:17] LABS: Alanine Aminotransferase 7 U/L (10-49); Albumin, Serum 4.3 gm/dL (3.4-4.8); Albumin/Globulin Ratio 1.3 (1.2-2.2); Alkaline Phosphatase 71 U/L (46-116); Anion Gap 13 (7-16); Aspartate Amino Transferase 14 U/L (0-34); BUN/Creatinine Ratio 16 Ratio (12-20); Bilirubin,Total 0.6 mg/dL (0.3-1.2); Blood Urea Nitrogen 16 mg/dL (9-23); Calcium 8.6 mg/dL (8.3-10.6); Calcium (Corrected) 8.6 mg/dL (8.5-10.1); Carbon Dioxide 18.9 mMol/L (20.0-31.0); Cardiac Risk Estimate 4.8 RATIO (3.7-5.6); Chloride 109 mMol/L (98-107); Cholesterol 211 mg/dL (132-200); Globulin 3.2 gm/dL (2.3-3.5); Glucose 73 mg/dL (74-106); HDL Cholesterol 44 mg/dL (40-60); LDL Cholesterol,Calculated 133 mg/dL (0-130); Osmolality,Calculated 281 (275-295); Potassium 4.3 mMol/L (3.4-5.1); Sodium 141 mMol/L (136-145); Total Protein 7.5 gm/dL (5.7-8.2); Triglycerides 171 mg/dL (30-150); eGFR 58 See Note
[2024-08-27 12:29] LABS: Bilirubin,Urine Negative (Negative); Blood,Urine Negative (Negative); Clarity,Urine Clear (Clear/Hazy); Color,Urine Lt-Yellow (Lt Yel-Yel); Glucose, Urine 4+ (Negative); Hyaline Casts,Urine < 1 /hpf (0-1); Ketones,Urine Negative (Negative); Leukocyte Esterase,Urine Negative (Negative); Nitrite,Urine Negative (Negative); Protein,Urine Negative (Neg - Trace); RBC,Urine < 1 /hpf (0-3); Specific Gravity,Urine 1.013 (1.001-1.035); Squamous Epithelial Cell,Urine 2 /hpf (0-5); Urobilinogen,Urine Negative mg/dL (0.0-1.0); WBC,Urine 1 /hpf (0-5)
== END 2024-09-04 23:59 | disposition home or self-care (01) ==
LOC: SCTC 13:03
PROVIDERS: PCP Family Medicine; Referring Provider Family Medicine; Visit Provider Internal Medicine Hematology & Oncology
DX: Z51.11 Encounter for antineoplastic chemotherapy (principal); C56.9 Malignant neoplasm of unspecified ovary; J91.0 Malignant pleural effusion; R18.0 Malignant ascites; I10 Essential (primary) hypertension; E78.00 Pure hypercholesterolemia, unspecified; E11.9 Type 2 diabetes mellitus without complications; Z79.84 Long term (current) use of oral hypoglycemic drugs; D64.9 Anemia, unspecified; E03.9 Hypothyroidism, unspecified
CPT/HCPCS: 36591; 80053; 80061; 81001; 82378; 83036; 85025; 86304; 96365; 96413; 99212; A4216; J1642; J2916; J7040; J7050; Q5126; G0463

== ENCOUNTER 2024-09-27 11:35 | Outpatient (RCR) | payer MEDICARE, MEDICAID, SELFPAY ==
[2024-09-20 08:35] LABS: Collection Type, Urine Voided
[2024-09-20 08:43] LABS: Basophils # (Auto) 0.1 Thou/mm3 (0.0-0.2); Basophils % (Auto) 1 % (0-2.5); Eosinophils # (Auto) 0.2 Thou/mm3 (0.0-0.5); Eosinophils % (Auto) 2 % (0-10); Hematocrit 42.7 % (36.0-46.0); Hemoglobin 14.2 g/dL (12.0-16.0); Immature Granulocytes % (Auto) 0 % (0-0); Immature Granulocytes Auto 0.02 Thou/mm3 (0.00-0.00); Lymphocytes # (Auto) 2.8 Thou/mm3 (1.0-4.8); Lymphocytes % (Auto) 36 % (10-50); Mean Corpuscular HGB Conc 33.3 g/dl (31.0-37.0); Mean Corpuscular Hemoglobin 31.3 pg (25.0-35.0); Mean Corpuscular Volume 94 fL (80-100); Monocytes # (Auto) 0.5 Thou/mm3 (0.0-0.8); Monocytes % (Auto) 7 % (0-12); Neutrophils # (Auto) 4.3 Thou/mm3 (1.8-7.7); Neutrophils % (Auto) 54 % (37-80); Nucleated Red Blood Cell % 0 /100 WBC (0); Platelet Count 195 Thou/mm3 (140-440); RDW Standard Deviation 54.2 fL (36.4-46.3); Red Blood Count 4.54 Miln/mm3 (4.00-5.20); White Blood Count 7.8 Thou/mm3 (3.6-11.0)
[2024-09-20 09:07] LABS: Alanine Aminotransferase 12 U/L (10-49); Albumin, Serum 4.3 gm/dL (3.4-4.8); Albumin/Globulin Ratio 1.5 (1.2-2.2); Alkaline Phosphatase 74 U/L (46-116); Anion Gap 11 (7-16); Aspartate Amino Transferase 13 U/L (0-34); BUN/Creatinine Ratio 18 Ratio (12-20); Bilirubin,Total 0.5 mg/dL (0.3-1.2); Blood Urea Nitrogen 22 mg/dL (9-23); Carbon Dioxide 21.1 mMol/L (20.0-31.0); Chloride 108 mMol/L (98-107); Creatinine (Component) 1.2 mg/dL (0.6-1.3); Globulin 2.9 gm/dL (2.3-3.5); Glucose 135 mg/dL (74-106); Osmolality,Calculated 284 (275-295); Potassium 4.5 mMol/L (3.4-5.1); Sodium 140 mMol/L (136-145); Total Protein 7.2 gm/dL (5.7-8.2); eGFR 47 See Note
[2024-09-20 09:16] LABS: Bacteria,Urine Rare; Bilirubin,Urine Negative (Negative); Blood,Urine Negative (Negative); Clarity,Urine Clear (Clear/Hazy); Color,Urine Lt-Yellow (Lt Yel-Yel); Glucose, Urine 4+ (Negative); Ketones,Urine Negative (Negative); Leukocyte Esterase,Urine Positive (Negative); Nitrite,Urine Negative (Negative); Protein,Urine Negative (Neg - Trace); RBC,Urine 1 /hpf (0-3); Squamous Epithelial Cell,Urine 8 /hpf (0-5); Urobilinogen,Urine Negative mg/dL (0.0-1.0); WBC,Urine 2 /hpf (0-5)
--- NOTE | 2024-09-29 23:04 | CTCFLWUP_ITS ---
Patient: AARON OSMAN : 1950 Page 9 of 11 FOLLOW UP NOTE DATE OF SERVICE: 09/27/2024 NAME: AARON OSMAN ACCOUNT: [id number] : 1950 AGE: 74 INTERVAL HISTORY: Subjective: Chief Complaint Patient is here for follow up History of Present Illness Dawson severino is a patient with a history of cancer who completed 18 weeks of carboplatin, Taxol, and bevacizumab chemotherapy on June 21. Patient is on NIKKY and here for follow up on labs Medical History - Cancer (type not specified) treated with carboplatin, Taxol, and bevacizumab Medications and Supplements - Carboplatin - Part of 18-week regimen with Taxol and bevacizumab. - Discontinued due to patient feeling miserable. - Taxol - Part of 18-week regimen with carboplatin and bevacizumab. - Discontinued due to patient feeling miserable. - Bevacizumab - Part of 18-week regimen with carboplatin and Taxol. - Discontinued due to patient feeling miserable. - Denosumab - Taken on August 10. Social History - Exercise: Recommendation to improve exercise habits and gain muscle mass - Diet: Recommendation to improve diet Review of Systems General: Positive for fatigue. Objective: Laboratory, Imaging, and Diagnostic Test Results - CA125: 89 (previous result, date not specified) - CA: 2.2 (date not specified) - Denosumab: Administered on 08/10/2024 03/23/2013: Ms. Osman had the following surgery done at [facility]. 05/10/2013 - 08/23/2013: Ms. Osman received 6 cycles of adjuvant carboplatin and paclitaxel here at [facility]] cancer Center. 08/25/2023: Patient had chest x-rays done due to persistent cough 08/27/2023 CT scan of the chest with and without contrast was obtained 09/02/2023: Ms. Osman had ultrasound-guided left thoracentesis. 1025 cc of pleural fluid was removed. 09/10/2023: CT scan of the abdomen and pelvis with and without IV contrast 09/10/2023: Transvaginal ultrasound 09/18/2023: Ms. Osman had left-sided thoracentesis 10/04/2023: PET/CT scan? 10/27/2023: CA 125 is 874.0 10/28/2023: Ms. Osman received first weekly dose of Taxol and carboplatin. 11/04/2023: CA 125 is 513. 11/04/2023: Ms. Osman received second dose of weekly Taxol and carboplatin. 11/10/2023: CA 125 is 390. 02/05/2024: CT of chest abdomen and pelvis with contrast, essentially negative, no evidence for mass, no abdominal or pelvic lymphadenopathy 02/17/2024: CA125 169.0 03/08/2024: CEA 125 is 175.0 ONCOLOGY HISTORY: Patient completed 18 cycles of carboplatin and Taxol on 03/02/2024. Patient started bevacizumab 15 mg/kg on 03/09/2024. Patient reports increased energy level since she completed carboplatin and Taxol and started bevacizumab. Previously levothyroxine was increased to 37.5mcg, started new dosage on . CA125 was 175 on 03/08/2024. Patient reports good appetite. Ambulating well without assistance. Patient denies neuropathy. INTERVAL HISTORY: PREVIOUS NOTES: Ms. Osman is here at [facility]3] cancer center accompanied by her daughter, Shubham. Patient completed cycle 16 of weekly dose of carboplatin and Taxol. CA125 is 169.0. CT of chest abdomen and pelvis with contrast done on 02/05/2024 showed no liver lesions, no adnexal mass, no abdominal or pelvic lymphadenopathy. TSH is 7.07 T4 is 1.40, 02/13/2024. Patient is taking levothyroxine 25 mcg daily. Unfortunately, iron saturation ferritin B12 were not collected, hemoglobin 10.2, MCV 99. Patient complaining of feeling tired. Patient denies neuropathy. Patient reports good appetite. Patient denies any other concerns or complaints. She denies any cough, chest pain, abdominal pain or leg cramps. Ambulating well without any help. HISTORY: Aaron Osman is a 74-year-old SPA speaking female with history of type 2 diabetes, hypertension, hypercholesterolemia has the following oncology history. 02/16/2013: CA 125 is 319.9. 02/17/2013: Transvaginal entrance abdominal ultrasound? 03/23/2013: Ms. Osman had the following surgery done at [facility], [place]. 05/10/2013 - 08/23/2013: Ms. Osman received 6 cycles of adjuvant carboplatin and paclitaxel here at [facility]3] cancer Center. 08/25/2023: Patient had chest x-rays done due to persistent cough 08/27/2023 CT scan of the chest with and without contrast was obtained 09/02/2023: Ms. Osman had ultrasound-guided left thoracentesis. 1025 cc of pleural fluid was removed. 09/10/2023: CT scan of the abdomen and pelvis with and without IV contrast 09/10/2023: Transvaginal ultrasound 09/18/2023: Ms. Osman had left-sided thoracentesis 10/04/2023: PET/CT scan? 10/27/2023: CA 125 is 874.0 10/28/2023: Ms. Osman received first weekly dose of Taxol and carboplatin. 11/04/2023: CA 125 is 513. 11/04/2023: Ms. Osman received second dose of weekly Taxol and carboplatin. 11/10/2023: CA 125 is 390. 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 S/p adjuvant chemotherapy with Taxol and carboplatin (05/10/2013 - 08/23/2013) s/p Taxol and carboplatin 18 cycles completed 03/02/2024. Bevacizumab 15 mg/kg every 3 weeks started on 03/09/2024 Type 2 diabetes without any peripheral neuropathy. Hypertension. Hypercholesterolemia. DATE OF DIAGNOSIS: 09/02/2023 STAGE/TNM: IIIC T3b N1 M0 TREATMENT HISTORY: Care?Plan Start?Date Cycle Day Intent CARBOplatin?AUC?6,?PACLItaxel?175?-?Rec?or?Met 05/10/201304 27 Curative?(adjuvant) CARBOplatin?AUC?6,?PACLItaxel?175?-?Rec?or?Met 05/10/2013 1 21 Curative?(adjuvant) PACLItaxel?60mg/m*2?+?Carboplatin?AUC?2?-weekly?x?18weeks?2 10/28/2023 1 7 Palliative Bevacizumab?15?mg/kg?-?Met 03/09/2024 1 21 Palliative FERRlecit?she 06/08/2024 1 7 Maintenance HISTORY OF PRESENT ILLNESS: OTHER MEDICAL HISTORY/CONDITIONS: Ovarian cancer - dx 03/2013 HTN Diabetes Hypothyroid Hyperlipidemia ANH-BSO - 03/23/2013 x 3 Total right shoulder replacement - 10/2022- Dr. Claudio FAMILY HISTORY: Cancer?History:?Denies Patient?denies?family?cancer?history. SOCIAL HISTORY: Occupational?History:?Retired Education?Level:?Completed something less than 8th grade Marital?Status:? Tobacco Use:?Quit 50-60yrs ago - Socially ETOH?Use:?Denies Drug?Note:?Denies Social?History?Note:?Lives?with? [employer] HISTORY: Menarche?-?Age:?12 Menopause:?53 :?5 Live?Births:?5 Age?1st?:?24 MEDICATIONS: 1. Crestor - 20 mg 1 tab Daily 2. levothyroxine - 37.5 mcg 1 Capsule Daily 3. lisinopril - 10 mg 1 tab Daily 4. lisinopril - 20 mg 1 tab Daily 5. Tradjenta - 5 mg 1 tab Daily Medications Last Reconciled by Amber Burris MA on 09/27/2024 ALLERGIES: No Known Drug Allergies REVIEW OF SYSTEMS: A complete 14-point review of systems was performed and is negative except as noted in interval history. PHYSICAL EXAMINATION: VITAL SIGNS: Temperature?97.4, B/P?117/74, Oxygen?Saturation?99% Weight?131?lbs (Change?since?09/21/24:?-3.4?lbs) PAIN: 0 - No pain ECOG Performance Status: 1 - Symptomatic; ambulatory; restricted in strenuous activity NEURO: Alert and oriented x4 EYE: Conjunctivae is white CHEST: Clear to auscultation. No wheezes or rales audible. Right sided chemo port. CARDIAC: Rhythm regular. EXTREMITIES: No pedal edema or cyanosis. LABORATORY DATA: I have personally reviewed and interpreted each of the patient?s relevant lab tests, abnormal findings are below: Date 08/31/24 09/20/24 ??WHITE?BLOOD?COUNT?(Thou/mm3) ? 7.8 ??RED?BLOOD?COUNT?(Miln/mm3) ? 4.54 ??HEMOGLOBIN?(gm/dl) ? 14.2 ??HEMATOCRIT?(%) ? 42.7 ??PLATELET?COUNT?(Thou/mm3) ? 195 ??NEUTROPHILS?%,?AUTO?(%) ? 54 ??LYMPH?%,?AUTO?(%) ? 36 ??NEUTROPHILS,?AUTO?(Thou/mm3) ? 4.3 ??GLUCOSE,RANDOM?(mg/dL) 186 135?H ??BLOOD?UREA?NITROGEN?(mg/dL) ? 22 ??CREATININE?(mg/dL) ? 1.20 ??SODIUM?(mmol/L) ? 140 ??POTASSIUM?(mmol/L) ? 4.5 ??CHLORIDE?(mmol/L) ? 108?H ??CrCl?(CandG)?(ml/min) ? 38.27 ??AST/SGOT?(Unit/L) ? 13 ??ALT/SGPT?(Unit/L) ? 12 ??ALKALINE?PHOSPHATASE?(Unit/L) ? 74 ??BILIRUBIN,?TOTAL?(mg/dL) ? 0.5 ??PROTEIN?TOTAL?(gm/dl) ? 7.2 ??ALBUMIN,?SERUM?(gm/dl) ? 4.3 ??GLOBULIN?(gm/dl) ? 2.9 ??ALBUMIN/GLOBULIN?RATIO ? 1.5 ??CALCIUM,?SERUM?(mg/dL) ? 9.0 ??CALCIUM?SERUM?(CORRECTED)?(mg/dL) ? 9.0 ??CA?125?(O*)?(Unit/mL) ? 148.0?H ASSESSMENT/PLAN: #1 metastatic ovarian cancer Patient had malignant pleural effusion as well as ascites fluid left-sided thoracentesis (09/18/2023) Patient had thoracentesis (09/02/2023). 1025 cc of pleural fluid was removed. metastatic ovarian carcinoma with left-sided malignant pleural effusion (09/02/2023), and ascites her CA125 decreased to 163. Abdominal distention and discomfort also significantly improved. CA125 is 175.0 on 03/08/2024 Patient complained of fatigue and tiredness along with some shaking since when she started chemotherapy, shaking has resolved. Chemo was stopped . she was started on NIKKY CT chest abdomen and pelvis with contrast to evaluate status of her disease essentially negative, no adnexal mass, no abdominal or pelvic lymphadenopathy, 02/05/2024. Complete chemotherapy, 18 cycles Taxol and carboplatin, 03/02/2024 Echo 06/2024is good. Ct 06/2024 is stable Started Bevacizumab (Avastin) 15mg/kg on 03/09/2024, cycles every 3 weeks. 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 Will continue closely monitoring #3 anemia Likely from chemotherapy with carboplatin Iron saturation 53%, ferritin 54, B12 366, folate 10.19 Anemia panel prior to next follow-up appointment #4 hypertension and diabetes mellitus type 2 Advised to continue follow-up with PCP Blood pressure well-controlled #5 hypercholesterolemia Continue follow with PCP #6 hypothyroidism Levothyroxine increased to 37.5mcg daily from 25mcg daily, started new dosage on 03/08/2024 TSH was checked to make sure patient is not having iatrogenic thyrotoxicosis TSH 7.07 on 02/13/2024. TSH T4 prior to next follow-up appointment - Follow up on gastroenterology referral for endoscopy and colonoscopy ORDERS: Order # Description [id number] Scan + With W/O Contrast [id number] Infusion 5 Hours RETURN TO CLINIC: BILLING AND COMPLIANCE: I reviewed external records from providers outside my specialty as summarized above. I spent a total of 50 minutes on this patient?s care on the day of their visit excluding time spent related to any billed procedures. This time includes time spent with the patient as well as time spent documenting in the medical record, reviewing patients records and tests, obtaining history, placing orders, communicating with other healthcare professionals, counseling the patient, family or caregiver, and/or care coordination for the diagnoses above. Electronically Signed by: Kyle Dominguez MD T: 11:02 PM CC: PCP: Amber Segura Referring: Amber Segura This document was completed utilizing speech recognition software. Grammatical errors, random word insertions, pronoun errors, and incomplete sentences are an occasional consequence of this system due to software limitations, ambient noise, and hardware issues. Any formal questions or concerns about the content, text or information contained within the body of this dictation should be directly addressed to the provider for clarification.
== END 2024-10-04 23:59 | disposition home or self-care (01) ==
LOC: SCTC 11:35
PROVIDERS: PCP Family Medicine; Referring Provider Family Medicine; Visit Provider Internal Medicine Hematology & Oncology
DX: Z51.11 Encounter for antineoplastic chemotherapy (principal); C56.3 Malignant neoplasm of bilateral ovaries; J91.0 Malignant pleural effusion; Z90.722 Acquired absence of ovaries, bilateral; R18.0 Malignant ascites; D64.9 Anemia, unspecified; I10 Essential (primary) hypertension; E11.9 Type 2 diabetes mellitus without complications; E78.00 Pure hypercholesterolemia, unspecified; E03.9 Hypothyroidism, unspecified
CPT/HCPCS: 36591; 80053; 81001; 85025; 86304; 96365; 96413; 99212; A4216; J1642; J2916; J7040; J7050; Q5126; G0463

== ENCOUNTER 2024-10-01 10:30 | Day surgery (SDC) | payer MEDICARE, MEDICAID, SELFPAY ==
[2024-09-30 15:22] VITALS: BMI 28.5
[2024-10-01] VITALS (11 sets, daily range): BP systolic 98–166; BP diastolic 61–97; PULSE 72–78; RESP 13–24; TEMP 36.2–36.4; O2SAT 94–99; BMI 28.3
[2024-10-01] MEDS: SODIUM CHLORIDE 0.9% 500 ML 500 ML 20 ML IV (12:00)
[2024-10-01] MEDS: BENZOCAINE 20% (Hurricaine) SPRAY 1 DOSE TOP (12:01)
[2024-10-01] MEDS: DiphenhydrAMINE INJ 50 MG/ML VIAL 25 MG IVP (12:02)
[2024-10-01] MEDS: MIDAZOLAM INJ 1 MG/ML VIAL 2 ML (ASD USE ONLY) 2 MG IVP (12:20)
[2024-10-01] MEDS: fentaNYL CIT INJ 50 mCg/ML AMP 2ML (ASD USE ONLY) IVP (12:20)
--- NOTE | 2024-10-01 13:45 | SUR.PHASEII ---
1300 Pt remains drowsy, yet approp. Via Occitan speaker-pt denies pain or N/V, then drifts back to sleep. Abd remains soft. 1315 Pt remains drowsy, yet approp. Jacoby po fluids. Daughter assisting pt with getting dressed. 1328 Pt assessment unchanged, except more awake and alert. No complaints. Requests daughter to interpret. DC instructions given and questions answered. Pt meets dc criteria- to home.
== END 2024-10-01 13:28 | disposition home or self-care (01) ==
PROVIDERS: PCP Family Medicine; Referring Provider Specialist; Visit Provider Specialist
PROC: 0DBE8ZX Excision of Large Intestine, Via Natural or Artificial Opening Endoscopic, Diagnostic (ICD-10-PCS; CPT 45380; principal; 2024-10-01 11:00)
PROC: (CPT 43239; 2024-10-01 11:00)
DX: Z12.11 Encounter for screening for malignant neoplasm of colon (principal); K52.9 Noninfective gastroenteritis and colitis, unspecified; K62.89 Other specified diseases of anus and rectum; K63.89 Other specified diseases of intestine; K64.9 Unspecified hemorrhoids; K57.30 Diverticulosis of large intestine without perforation or abscess without bleeding
CPT/HCPCS: 45380; J1200; J2250; J3010; J7999; A9270

== ENCOUNTER → 2024-10-07 | Outpatient (CLI) | payer MEDICARE, MEDICAID, SELFPAY ==
--- NOTE | 2024-10-07 13:30 | ECHO_ITS ---
Transthoracic Echo Report Ht (in): 57 Wt (lb): 132 Exam Location: Echo Lab Status: Preadmit Industrial Relations Officer: Sommer Mari Indications: Procedure Performed: BP: / HR: Technical Quality: Adequate MEASUREMENTS (Male / Female) Normal Values 2D ECHO LV Diastolic Diameter PLAX 4.4 cm 4.2 - 5.9 / 3.9 - 5.3 cm LV Systolic Diameter PLAX 3.1 cm IVS Diastolic Thickness 0.8 cm 0.6 - 1.0 / 0.6 - 0.9 cm LVPW Diastolic Thickness 1.1 cm 0.6 - 1.0 / 0.6 - 0.9 cm LV Relative Wall Thickness 0.4 LVOT Diameter 2.0 cm LA Volume Index 27.8 cm?/m? 16 - 28 cm?/m? Ascending Aorta Diameter 3.1 cm M-MODE AV Cusp Separation MM 1.9 cm DOPPLER AV Peak Velocity 106.0 cm/s AV Peak Gradient 4.5 mmHg LVOT Peak Velocity 78.6 cm/s LVOT Peak Gradient 2.5 mmHg AV Area Cont Eq pk 2.3 cm? MV Area PHT 2.0 cm? Mitral E Point Velocity 47.1 cm/s Mitral A Point Velocity 101.0 cm/s Mitral E to A Ratio 0.5 LV E' Lateral Velocity 4.0 cm/s Mitral E to LV E' Lateral Ratio 11.7 LV E' Septal Velocity 4.3 cm/s Mitral E to LV E' Septal Ratio 10.8 TR Peak Velocity 208.0 cm/s TR Peak Gradient 17.3 mmHg PV Peak Velocity 80.1 cm/s PV Peak Gradient 2.6 mmHg FINDINGS Left Ventricle Normal left ventricular size, wall thickness, systolic function with no obvious regional wall motion abnormalities. Normal left ventricular diastolic filling pattern for age. The ejection fraction is visually estimated at 55 %. Right Ventricle The right ventricle is normal in size and systolic function. The estimated right ventricular systolic pressure, 17mmHg. Left Atrium The left atrium is normal by two-dimensional, color flow and Doppler imaging with no structural abnormalities, no thrombus formation present. Right Atrium The right atrium is normal by two-dimensional imaging, color flow and Doppler imaging with no structural abnormalities, no thrombus formation present. Atrial Septum The interatrial septum appears normal with no evidence of a shunt. Aorta The aorta is normal by two-dimensional, color flow and Doppler interrogation. Mitral Valve The mitral valve is normal by two-dimensional, color flow and Doppler interrogation. There is no significant mitral valve regurgitation, stenosis or prolapse. Aortic Valve The aortic valve is trileaflet and normal by two-dimensional, color flow and Doppler interrogation. There is no significant aortic valve regurgitation. Tricuspid Valve The tricuspid valve is normal by two-dimensional, color flow and Doppler interrogation. There is trace tricuspid regurgitation. Pulmonic Valve The pulmonic valve is not well visualized. There is no significant pulmonic valve regurgitation. Vessels The pulmonary artery appears normal. The inferior vena cava pulmonary and hepatic veins appear normal. Pericardium The pericardium is normal by two-dimensional imaging. There is no significant pericardial effusion. CONCLUSIONS Indications: Ovarian Cancer The transthoracic study is normal by two-dimensional, color flow imaging and Doppler interrogation. Normal left ventricular size and function. Approximate ejection fraction is 55%. Debbie Bynum (Electronically Signed) Final Date: 08 October 2024 16:28
== END | disposition home or self-care (01) ==
PROVIDERS: PCP Family Medicine; Referring Provider Internal Medicine Hematology & Oncology; Visit Provider Internal Medicine Hematology & Oncology
DX: C56.9 Malignant neoplasm of unspecified ovary (principal)
CPT/HCPCS: 93306

== ENCOUNTER 2024-11-02 13:58 | Outpatient (RCR) | payer MEDICARE, MEDICAID, SELFPAY ==
[2024-10-13 09:19] LABS: Collection Type, Urine Voided; RBC,Urine 0 /hpf (0-3)
[2024-10-13 09:30] LABS: Basophils # (Auto) 0.0 Thou/mm3 (0.0-0.2); Basophils % (Auto) 1 % (0-2.5); Eosinophils # (Auto) 0.2 Thou/mm3 (0.0-0.5); Eosinophils % (Auto) 2 % (0-10); Hematocrit 41.4 % (36.0-46.0); Hemoglobin 13.7 g/dL (12.0-16.0); Immature Granulocytes Auto 0.01 Thou/mm3 (0.00-0.00); Lymphocytes # (Auto) 2.1 Thou/mm3 (1.0-4.8); Lymphocytes % (Auto) 33 % (10-50); Mean Corpuscular HGB Conc 33.1 g/dl (31.0-37.0); Mean Corpuscular Hemoglobin 32.3 pg (25.0-35.0); Mean Corpuscular Volume 98 fL (80-100); Monocytes # (Auto) 0.4 Thou/mm3 (0.0-0.8); Monocytes % (Auto) 7 % (0-12); Neutrophils # (Auto) 3.6 Thou/mm3 (1.8-7.7); Neutrophils % (Auto) 57 % (37-80); Nucleated Red Blood Cell # 0.00 Thou/mm3 (0.00-0.00); Nucleated Red Blood Cell % 0 /100 WBC (0); Platelet Count 175 Thou/mm3 (140-440); RDW Standard Deviation 53.4 fL (36.4-46.3); Red Blood Count 4.24 Miln/mm3 (4.00-5.20); White Blood Count 6.3 Thou/mm3 (3.6-11.0)
[2024-10-13 09:39] LABS: Bilirubin,Urine Negative (Negative); Blood,Urine Negative (Negative); Clarity,Urine Clear (Clear/Hazy); Color,Urine Lt-Yellow (Lt Yel-Yel); Glucose, Urine 4+ (Negative); Ketones,Urine Negative (Negative); Leukocyte Esterase,Urine Positive (Negative); Nitrite,Urine Negative (Negative); PH,Urine 5.5 (5.0-7.0); Protein,Urine Negative (Neg - Trace); Specific Gravity,Urine 1.023 (1.001-1.035); Squamous Epithelial Cell,Urine 4 /hpf (0-5); Urobilinogen,Urine Negative mg/dL (0.0-1.0); WBC,Urine 2 /hpf (0-5)
[2024-10-13 09:50] LABS: Alanine Aminotransferase 11 U/L (10-49); Albumin, Serum 4.0 gm/dL (3.4-4.8); Albumin/Globulin Ratio 1.5 (1.2-2.2); Alkaline Phosphatase 62 U/L (46-116); Anion Gap 11 (7-16); Aspartate Amino Transferase 16 U/L (0-34); BUN/Creatinine Ratio 20 Ratio (12-20); Bilirubin,Total 0.6 mg/dL (0.3-1.2); Blood Urea Nitrogen 20 mg/dL (9-23); Calcium 8.7 mg/dL (8.3-10.6); Calcium (Corrected) 8.7 mg/dL (8.5-10.1); Carbon Dioxide 25.9 mMol/L (20.0-31.0); Chloride 106 mMol/L (98-107); Creatinine (Component) 1.0 mg/dL (0.6-1.3); Globulin 2.7 gm/dL (2.3-3.5); Glucose 137 mg/dL (74-106); Osmolality,Calculated 289 (275-295); Potassium 4.3 mMol/L (3.4-5.1); Sodium 143 mMol/L (136-145); Total Protein 6.7 gm/dL (5.7-8.2); eGFR 58 See Note
[2024-10-13 10:00] LABS: CA 125 141.0 U/mL (<30.2)
== END 2024-11-04 23:59 | disposition home or self-care (01) ==
LOC: SCTC 13:58
PROVIDERS: PCP Family Medicine; Referring Provider Family Medicine; Visit Provider Internal Medicine Hematology & Oncology
DX: Z51.11 Encounter for antineoplastic chemotherapy (principal); C56.9 Malignant neoplasm of unspecified ovary; J91.0 Malignant pleural effusion; R18.0 Malignant ascites; R53.83 Other fatigue; D64.9 Anemia, unspecified; I10 Essential (primary) hypertension; E11.9 Type 2 diabetes mellitus without complications; E78.00 Pure hypercholesterolemia, unspecified; E03.9 Hypothyroidism, unspecified
CPT/HCPCS: 36591; 80053; 81001; 85025; 86304; 96365; 96367; 96372; 96374; 96375; 96413; 96415; 96417; A4216; J1100; J1642; J2469; J2506; J2916; J3490; J7040; J7050; J9045; J9267; Q5126; A9270

== ENCOUNTER → 2024-11-03 | Outpatient (CLI) | payer MEDICARE, MEDICAID, SELFPAY ==
--- NOTE | 2024-11-03 10:30 | XR_ITS ---
Examination: CT abdomen, without intravenous contrast. CT pelvis, without intravenous contrast. CT abdomen, with intravenous contrast. CT pelvis, with intravenous contrast. 2-D sagittal coronal reconstructions. Date and time of exam:November 03, 2024 1036 hours, comparison CT chest abdomen pelvis June 15, 2024, PET/CT scan October 02, 2023 INDICATIONS: Diagnosis ovarian carcinoma and surgery August 2023, undergoing chemotherapy, restaging CTDI: vol (mGy) 22.1 DLP: (mGycm) 874 Technique: Multiple 3.0 axial images of the abdomen and pelvis without intravenous contrast, 3.0 mm slice thickness. Multiple 3.0 postcontrast images abdomen and pelvis also obtained, post intravenous injection 60 cc [id number] 2-D sagittal and coronal reconstructions. Low dose protocols were performed. One or more of the following dose reduction techniques were used; automated exposure control, adjustment of the mA and/or KV according to patient size, use of iterative reconstruction technique. Findings: Atelectasis left lower lobe with small pleural effusion Liver is irregular in contour, mild to moderate ascites Gallbladder is not visualized No pancreatic or adrenal mass No hydronephrosis Aorta calcification no aneurysmal dilatation No bowel obstruction Umbilical hernia, 30 mm, which contains transverse colon but no incarcerated bowel No bowel obstruction No abdominal or pelvic lymphadenopathy Absent uterus, no pelvic mass No bladder mass Severe osteopenia with advanced degenerative disc disease L2-L3, L3-L4, L5-S1, lumbar dextroscoliosis 25 degrees IMPRESSION: Liver is irregular in contour Mild to moderate ascites No abdominal or pelvic lymphadenopathy No abdominal or pelvic mass Umbilical hernia, 30 mm, which contains transverse colon but no incarcerated bowel or bowel obstruction
== END | disposition home or self-care (01) ==
PROVIDERS: PCP Family Medicine; Referring Provider Internal Medicine Hematology & Oncology; Visit Provider Internal Medicine Hematology & Oncology
DX: R18.8 Other ascites (principal); K42.9 Umbilical hernia without obstruction or gangrene; K63.89 Other specified diseases of intestine; C56.9 Malignant neoplasm of unspecified ovary
CPT/HCPCS: 74178; A4649; Q9967

== ENCOUNTER 2024-12-01 14:16 | Outpatient (RCR) | payer MEDICARE, MEDICAID, SELFPAY ==
[2024-11-08 11:02] LABS: Collection Type, Urine Voided
[2024-11-08 11:12] LABS: Basophils # (Auto) 0.1 Thou/mm3 (0.0-0.2); Basophils % (Auto) 1 % (0-2.5); Eosinophils # (Auto) 0.1 Thou/mm3 (0.0-0.5); Eosinophils % (Auto) 1 % (0-10); Hematocrit 42.7 % (36.0-46.0); Hemoglobin 14.1 g/dL (12.0-16.0); Immature Granulocytes Auto 0.05 Thou/mm3 (0.00-0.00); Lymphocytes # (Auto) 3.0 Thou/mm3 (1.0-4.8); Lymphocytes % (Auto) 26 % (10-50); Mean Corpuscular HGB Conc 33.0 g/dl (31.0-37.0); Mean Corpuscular Hemoglobin 32.6 pg (25.0-35.0); Mean Corpuscular Volume 99 fL (80-100); Monocytes # (Auto) 0.7 Thou/mm3 (0.0-0.8); Monocytes % (Auto) 6 % (0-12); Neutrophils # (Auto) 7.4 Thou/mm3 (1.8-7.7); Neutrophils % (Auto) 65 % (37-80); Nucleated Red Blood Cell # 0.00 Thou/mm3 (0.00-0.00); Nucleated Red Blood Cell % 0 /100 WBC (0); Platelet Count 341 Thou/mm3 (140-440); RDW Standard Deviation 58.2 fL (36.4-46.3); Red Blood Count 4.33 Miln/mm3 (4.00-5.20); White Blood Count 11.4 Thou/mm3 (3.6-11.0)
[2024-11-08 11:25] LABS: Alanine Aminotransferase < 7 U/L (10-49); Albumin, Serum 4.4 gm/dL (3.4-4.8); Albumin/Globulin Ratio 1.5 (1.2-2.2); Alkaline Phosphatase 93 U/L (46-116); Anion Gap 12 (7-16); Aspartate Amino Transferase 15 U/L (0-34); BUN/Creatinine Ratio 11 Ratio (12-20); Bilirubin,Total 0.6 mg/dL (0.3-1.2); Blood Urea Nitrogen 12 mg/dL (9-23); Calcium 9.6 mg/dL (8.3-10.6); Calcium (Corrected) 9.6 mg/dL (8.5-10.1); Carbon Dioxide 24.5 mMol/L (20.0-31.0); Chloride 104 mMol/L (98-107); Creatinine (Component) 1.1 mg/dL (0.6-1.3); Globulin 3.0 gm/dL (2.3-3.5); Glucose 164 mg/dL (74-106); Osmolality,Calculated 283 (275-295); Potassium 4.2 mMol/L (3.4-5.1); Sodium 140 mMol/L (136-145); Total Protein 7.4 gm/dL (5.7-8.2); eGFR 52 See Note
[2024-11-08 11:42] LABS: Bilirubin,Urine Negative (Negative); Blood,Urine 2+ (Negative); Budding Yeast,Urine Present; Clarity,Urine Clear (Clear/Hazy); Color,Urine Lt-Yellow (Lt Yel-Yel); Glucose, Urine 4+ (Negative); Ketones,Urine Negative (Negative); Leukocyte Esterase,Urine Positive (Negative); Nitrite,Urine Negative (Negative); PH,Urine 5.5 (5.0-7.0); Protein,Urine Negative (Neg - Trace); RBC,Urine 15 /hpf (0-3); Specific Gravity,Urine 1.022 (1.001-1.035); Squamous Epithelial Cell,Urine 8 /hpf (0-5); Urobilinogen,Urine Negative mg/dL (0.0-1.0); WBC,Urine 21 /hpf (0-5)
[2024-11-08 11:43] LABS: CA 125 176.0 U/mL (<30.2)
[2024-11-29 10:10] LABS: Collection Type, Urine Voided
[2024-11-29 10:19] LABS: Basophils # (Auto) 0.1 Thou/mm3 (0.0-0.2); Basophils % (Auto) 0 % (0-2.5); Eosinophils # (Auto) 0.1 Thou/mm3 (0.0-0.5); Eosinophils % (Auto) 1 % (0-10); Hematocrit 37.5 % (36.0-46.0); Hemoglobin 12.5 g/dL (12.0-16.0); Immature Granulocytes Auto 0.04 Thou/mm3 (0.00-0.00); Lymphocytes # (Auto) 2.6 Thou/mm3 (1.0-4.8); Lymphocytes % (Auto) 23 % (10-50); Mean Corpuscular HGB Conc 33.3 g/dl (31.0-37.0); Mean Corpuscular Hemoglobin 33.2 pg (25.0-35.0); Mean Corpuscular Volume 100 fL (80-100); Monocytes # (Auto) 0.7 Thou/mm3 (0.0-0.8); Monocytes % (Auto) 6 % (0-12); Neutrophils # (Auto) 8.0 Thou/mm3 (1.8-7.7); Neutrophils % (Auto) 70 % (37-80); Nucleated Red Blood Cell # 0.00 Thou/mm3 (0.00-0.00); Nucleated Red Blood Cell % 0 /100 WBC (0); Platelet Count 152 Thou/mm3 (140-440); RDW Standard Deviation 61.0 fL (36.4-46.3); Red Blood Count 3.76 Miln/mm3 (4.00-5.20); White Blood Count 11.6 Thou/mm3 (3.6-11.0)
[2024-11-29 10:32] LABS: Alanine Aminotransferase 8 U/L (10-49); Albumin, Serum 3.9 gm/dL (3.4-4.8); Albumin/Globulin Ratio 1.3 (1.2-2.2); Alkaline Phosphatase 108 U/L (46-116); Anion Gap 12 (7-16); Aspartate Amino Transferase < 10 U/L (0-34); BUN/Creatinine Ratio 18 Ratio (12-20); Bilirubin,Total 0.5 mg/dL (0.3-1.2); Blood Urea Nitrogen 18 mg/dL (9-23); Calcium 8.7 mg/dL (8.3-10.6); Calcium (Corrected) 8.8 mg/dL (8.5-10.1); Carbon Dioxide 22.0 mMol/L (20.0-31.0); Chloride 105 mMol/L (98-107); Creatinine (Component) 1.0 mg/dL (0.6-1.3); Globulin 3.1 gm/dL (2.3-3.5); Glucose 180 mg/dL (74-106); Osmolality,Calculated 284 (275-295); Potassium 4.3 mMol/L (3.4-5.1); Sodium 139 mMol/L (136-145); Total Protein 7.0 gm/dL (5.7-8.2); eGFR 58 See Note
[2024-11-29 10:49] LABS: CA 125 192.0 U/mL (<30.2)
[2024-11-29 11:02] LABS: Bilirubin,Urine Negative (Negative); Blood,Urine Negative (Negative); Clarity,Urine Clear (Clear/Hazy); Color,Urine Lt-Yellow (Lt Yel-Yel); Glucose, Urine 4+ (Negative); Ketones,Urine Negative (Negative); Leukocyte Esterase,Urine Positive (Negative); Nitrite,Urine Negative (Negative); PH,Urine 5.0 (5.0-7.0); Protein,Urine Negative (Neg - Trace); RBC,Urine 1 /hpf (0-3); Specific Gravity,Urine 1.025 (1.001-1.035); Squamous Epithelial Cell,Urine 5 /hpf (0-5); Urobilinogen,Urine Negative mg/dL (0.0-1.0); WBC,Urine 1 /hpf (0-5)
[2024-11-30 10:06] LABS: Ferritin 1405 ng/mL (7.3-270.7); Folate 13.98 ng/mL (>5.38); Iron 64 mcg/dL (50-170); Percent Iron Saturation 25 % (20-55); Total Iron Binding Capacity 251 mcg/dL (250-425); Unsaturated Iron Binding 187 (225-295); Vitamin B12 > 2000 pg/mL (211-911)
== END 2024-12-05 23:59 | disposition home or self-care (01) ==
LOC: SCTC 14:16
PROVIDERS: PCP Family Medicine; Referring Provider Family Medicine; Visit Provider Internal Medicine Hematology & Oncology
DX: Z51.11 Encounter for antineoplastic chemotherapy (principal); C56.9 Malignant neoplasm of unspecified ovary; J91.0 Malignant pleural effusion; R18.0 Malignant ascites; R53.0 Neoplastic (malignant) related fatigue; D64.9 Anemia, unspecified; I10 Essential (primary) hypertension; E11.9 Type 2 diabetes mellitus without complications; E78.00 Pure hypercholesterolemia, unspecified; E03.9 Hypothyroidism, unspecified
CPT/HCPCS: 36591; 80053; 81001; 82607; 82728; 82746; 83540; 83550; 85014; 85018; 85025; 86304; 96367; 96372; 96375; 96413; 96415; 96417; A4216; J1100; J1642; J2469; J2506; J2916; J3490; J7040; J7050; J9045; J9267; Q5126; A9270

== ENCOUNTER 2024-12-23 14:00 | Outpatient (RCR) | payer MEDICARE, MEDICAID, SELFPAY ==
[2024-12-20 11:35] LABS: Collection Type, Urine Voided
[2024-12-20 11:41] LABS: Basophils # (Auto) 0.1 Thou/mm3 (0.0-0.2); Basophils % (Auto) 0 % (0-2.5); Eosinophils # (Auto) 0.1 Thou/mm3 (0.0-0.5); Eosinophils % (Auto) 1 % (0-10); Hematocrit 36.1 % (36.0-46.0); Hemoglobin 11.8 g/dL (12.0-16.0); Immature Granulocytes Auto 0.04 Thou/mm3 (0.00-0.00); Lymphocytes # (Auto) 3.6 Thou/mm3 (1.0-4.8); Lymphocytes % (Auto) 32 % (10-50); Mean Corpuscular HGB Conc 32.7 g/dl (31.0-37.0); Mean Corpuscular Hemoglobin 33.6 pg (25.0-35.0); Mean Corpuscular Volume 103 fL (80-100); Monocytes # (Auto) 0.7 Thou/mm3 (0.0-0.8); Monocytes % (Auto) 6 % (0-12); Neutrophils # (Auto) 6.8 Thou/mm3 (1.8-7.7); Neutrophils % (Auto) 60 % (37-80); Nucleated Red Blood Cell # 0.00 Thou/mm3 (0.00-0.00); Nucleated Red Blood Cell % 0 /100 WBC (0); Platelet Count 131 Thou/mm3 (140-440); RDW Standard Deviation 66.9 fL (36.4-46.3); Red Blood Count 3.51 Miln/mm3 (4.00-5.20); White Blood Count 11.3 Thou/mm3 (3.6-11.0)
[2024-12-20 12:00] LABS: Alanine Aminotransferase 8 U/L (10-49); Albumin, Serum 4.2 gm/dL (3.4-4.8); Albumin/Globulin Ratio 1.5 (1.2-2.2); Alkaline Phosphatase 103 U/L (46-116); Anion Gap 13 (7-16); Aspartate Amino Transferase 14 U/L (0-34); BUN/Creatinine Ratio 12 Ratio (12-20); Bacteria,Urine Rare; Bilirubin,Total 0.8 mg/dL (0.3-1.2); Bilirubin,Urine Negative (Negative); Blood Urea Nitrogen 12 mg/dL (9-23); Blood,Urine Negative (Negative); Calcium 9.3 mg/dL (8.3-10.6); Calcium (Corrected) 9.3 mg/dL (8.5-10.1); Carbon Dioxide 23.0 mMol/L (20.0-31.0); Chloride 104 mMol/L (98-107); Clarity,Urine Turbid (Clear/Hazy); Color,Urine Yellow (Lt Yel-Yel); Creatinine (Component) 1.0 mg/dL (0.6-1.3); Globulin 2.8 gm/dL (2.3-3.5); Glucose 170 mg/dL (74-106); Glucose, Urine 4+ (Negative); Ketones,Urine Negative (Negative); Leukocyte Esterase,Urine Positive (Negative); Nitrite,Urine Negative (Negative); Osmolality,Calculated 283 (275-295); PH,Urine 5.0 (5.0-7.0); Potassium 4.2 mMol/L (3.4-5.1); Protein,Urine Negative (Neg - Trace); RBC,Urine 1 /hpf (0-3); Sodium 140 mMol/L (136-145); Specific Gravity,Urine 1.029 (1.001-1.035); Squamous Epithelial Cell,Urine 14 /hpf (0-5); Total Protein 7.0 gm/dL (5.7-8.2); Urobilinogen,Urine Negative mg/dL (0.0-1.0); WBC,Urine 2 /hpf (0-5); eGFR 58 See Note
[2024-12-20 12:18] LABS: CA 125 185.0 U/mL (<30.2)
--- NOTE | 2024-12-26 23:19 | CTCFLWUP_ITS ---
Patient: AARON OSMAN : 1950 Page 9 of 12 FOLLOW UP NOTE DATE OF SERVICE: 12/23/2024 NAME: AARON OSMAN ACCOUNT: [id number] : 1950 AGE: 74 INTERVAL HISTORY: Subjective: Chief Complaint Patient is complaining of fatigue and tiredness. Patient is here to discuss CT scan results History of Present Illness Patient has been getting treatment with carboplatin Taxol and bevacizumab for her metastatic ovarian cancer medical History - Cancer (type not specified) treated with carboplatin, Taxol, and bevacizumab Medications and Supplements - Carboplatin - Part of 18-week regimen with Taxol and bevacizumab. - Discontinued due to patient feeling miserable. - Taxol - Part of 18-week regimen with carboplatin and bevacizumab. - Discontinued due to patient feeling miserable. - Bevacizumab - Part of 18-week regimen with carboplatin and Taxol. - Discontinued due to patient feeling miserable. - Denosumab - Taken on August 10. Social History - Exercise: Recommendation to improve exercise habits and gain muscle mass - Diet: Recommendation to improve diet Review of Systems General: Positive for fatigue. Objective: Laboratory, Imaging, and Diagnostic Test Results - CA125: 89 (previous result, date not specified) - CA: 2.2 (date not specified) - Denosumab: Administered on 08/10/2024 03/23/2013: Ms. Osman had the following surgery done at [facility]. 05/10/2013 - 08/23/2013: Ms. Osman received 6 cycles of adjuvant carboplatin and paclitaxel here at [facility]. 08/25/2023: Patient had chest x-rays done due to persistent cough 08/27/2023 CT scan of the chest with and without contrast was obtained 09/02/2023: Ms. Osman had ultrasound-guided left thoracentesis. 1025 cc of pleural fluid was removed. 09/10/2023: CT scan of the abdomen and pelvis with and without IV contrast 09/10/2023: Transvaginal ultrasound 09/18/2023: Ms. Osman had left-sided thoracentesis 10/04/2023: PET/CT scan? 10/27/2023: CA 125 is 874.0 10/28/2023: Ms. Osman received first weekly dose of Taxol and carboplatin. 11/04/2023: CA 125 is 513. 11/04/2023: Ms. Osman received second dose of weekly Taxol and carboplatin. 11/10/2023: CA 125 is 390. 02/05/2024: CT of chest abdomen and pelvis with contrast, essentially negative, no evidence for mass, no abdominal or pelvic lymphadenopathy 02/17/2024: CA125 169.0 03/08/2024: CEA 125 is 175.0 ONCOLOGY HISTORY:?[facility] On[facility] Hx? Patient completed 18 cycles of carboplatin and Taxol on 03/02/2024. Patient started bevacizumab 15 mg/kg on 03/09/2024. Patient reports increased energy level since she completed carboplatin and Taxol and started bevacizumab. Previously levothyroxine was increased to 37.5mcg, started new dosage on . CA125 was 175 on 03/08/2024. Patient reports good appetite. Ambulating well without assistance. Patient denies neuropathy. INTERVAL HISTORY: PREVIOUS NOTES: Ms. Osman is here at [facility] accompanied by her daughter, Shubham. Patient completed cycle 16 of weekly dose of carboplatin and Taxol. CA125 is 169.0. CT of chest abdomen and pelvis with contrast done on 02/05/2024 showed no liver lesions, no adnexal mass, no abdominal or pelvic lymphadenopathy. TSH is 7.07 T4 is 1.40, 02/13/2024. Patient is taking levothyroxine 25 mcg daily. Unfortunately, iron saturation ferritin B12 were not collected, hemoglobin 10.2, MCV 99. Patient complaining of feeling tired. Patient denies neuropathy. Patient reports good appetite. Patient denies any other concerns or complaints. She denies any cough, chest pain, abdominal pain or leg cramps. Ambulating well without any help. HISTORY: Aaron Osman is a 74-year-old SPA speaking female with history of type 2 diabetes, hypertension, hypercholesterolemia has the following oncology history. 02/16/2013: CA 125 is 319.9. 02/17/2013: Transvaginal entrance abdominal ultrasound? 03/23/2013: Ms. Osman had the following surgery done at [facility] [place]. 05/10/2013 - 08/23/2013: Ms. Osman received 6 cycles of adjuvant carboplatin and paclitaxel here at [facility]. 08/25/2023: Patient had chest x-rays done due to persistent cough 08/27/2023 CT scan of the chest with and without contrast was obtained 09/02/2023: Ms. Osman had ultrasound-guided left thoracentesis. 1025 cc of pleural fluid was removed. 09/10/2023: CT scan of the abdomen and pelvis with and without IV contrast 09/10/2023: Transvaginal ultrasound 09/18/2023: Ms. Osman had left-sided thoracentesis 10/04/2023: PET/CT scan? 10/27/2023: CA 125 is 874.0 10/28/2023: Ms. Osman received first weekly dose of Taxol and carboplatin. 11/04/2023: CA 125 is 513. 11/04/2023: Ms. Osman received second dose of weekly Taxol and carboplatin. 11/10/2023: CA 125 is 390. 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 S/p adjuvant chemotherapy with Taxol and carboplatin (05/10/2013 - 08/23/2013) s/p Taxol and carboplatin 18 cycles completed 03/02/2024. Bevacizumab 15 mg/kg every 3 weeks started on 03/09/2024 Type 2 diabetes without any peripheral neuropathy. Hypertension. Hypercholesterolemia. DATE OF DIAGNOSIS: 09/02/2023 STAGE/TNM: IIIC T3b N1 M0 TREATMENT HISTORY: Care?Plan Start?Date Cycle Day Intent CARBOplatin?AUC?6,?PACLItaxel?175?-?Rec?or?Met 05/10/201304 27 Curative?(adjuvant) CARBOplatin?AUC?6,?PACLItaxel?175?-?Rec?or?Met 05/10/2013 1 21 Curative?(adjuvant) PACLItaxel?60mg/m*2?+?Carboplatin?AUC?2?-weekly?x?18weeks?2 10/28/2023 1 7 Palliative Bevacizumab?15?mg/kg?-?Met 03/09/2024 1 21 Palliative FERRlecit?she 06/08/2024 1 7 Maintenance CARBOplatin?AUC?5,?PACLitaxel?80mg/m*2 01/11/2025 1 21 Palliative Zoledronic?Acid?4?mg 12/23/2024 1 90 Palliative HISTORY OF PRESENT ILLNESS: OTHER MEDICAL HISTORY/CONDITIONS: Ovarian cancer - dx 03/2013 HTN Diabetes Hypothyroid Hyperlipidemia ANH-BSO - 03/23/2013 x 3 Total right shoulder replacement - 10/2022- Dr. Claudio FAMILY HISTORY: Cancer?History:?Denies Patient?denies?family?cancer?history. SOCIAL HISTORY: Occupational?History:?Retired Education?Level:?Completed something less than 8th grade Marital?Status:? Tobacco Use:?Quit 50-60yrs ago - Socially ETOH?Use:?Denies Drug?Note:?Denies Social?History?Note:?Lives?with? SPEECH LANGUAGE ASSISTANT HISTORY: Menarche?-?Age:?12 Menopause:?53 :?5 Live?Births:?5 Age?1st?:?24 MEDICATIONS: 1. Benadryl Allergy - 25 mg 2 tab Daily 2. Crestor - 20 mg 1 tab Daily 3. dexamethasone - 4 mg 5 tab Daily 4. Jardiance - 25 mg 1 tab Daily 5. levothyroxine - 50 mcg 1 tab Daily 6. lisinopril - 20 mg 1 tab Daily 7. lisinopril - 10 mg 1 tab Daily 8. Pepcid - 20 mg 1 tab Daily?Palabra Meds? Medications Last Reconciled by Amber Burris MA on 12/23/2024 ALLERGIES: No Known Drug Allergies REVIEW OF SYSTEMS: A complete 14-point review of systems was performed and is negative except as noted in interval history. PHYSICAL EXAMINATION:?[facility] PE? VITAL SIGNS: Temperature?98, B/P?121/70, Oxygen?Saturation?98% PAIN: 0 - No pain ECOG Performance Status: 2 - Symptomatic; ambulatory; capable of self-care; >50% of waking hrs. not in bed NEURO: Alert and oriented x4 EYE: Conjunctivae is white CHEST: Breathing on room air LABORATORY DATA: I have personally reviewed and interpreted each of the patient?s relevant lab tests, abnormal findings are below: Date 11/30/24 12/20/24 ??WHITE?BLOOD?COUNT?(Thou/mm3) ? 11.3?H ??RED?BLOOD?COUNT?(Miln/mm3) ? 3.51?L ??HEMOGLOBIN?(gm/dl) ? 11.8?L ??HEMATOCRIT?(%) ? 36.1 ??PLATELET?COUNT?(Thou/mm3) ? 131?L ??NEUTROPHILS?%,?AUTO?(%) ? 60 ??LYMPH?%,?AUTO?(%) ? 32 ??NEUTROPHILS,?AUTO?(Thou/mm3) ? 6.8 ??GLUCOSE,RANDOM?(mg/dL) ? 170?H ??BLOOD?UREA?NITROGEN?(mg/dL) ? 12 ??CREATININE?(mg/dL) ? 1.00 ??SODIUM?(mmol/L) ? 140 ??POTASSIUM?(mmol/L) ? 4.2 ??CHLORIDE?(mmol/L) ? 104 ??CrCl?(CandG)?(ml/min) ? 45.31 ??AST/SGOT?(Unit/L) ? 14 ??ALT/SGPT?(Unit/L) ? 8?L ??ALKALINE?PHOSPHATASE?(Unit/L) ? 103 ??BILIRUBIN,?TOTAL?(mg/dL) ? 0.8 ??PROTEIN?TOTAL?(gm/dl) ? 7.0 ??ALBUMIN,?SERUM?(gm/dl) ? 4.2 ??GLOBULIN?(gm/dl) ? 2.8 ??ALBUMIN/GLOBULIN?RATIO ? 1.5 ??CALCIUM,?SERUM?(mg/dL) ? 9.3 ??CALCIUM?SERUM?(CORRECTED)?(mg/dL) ? 9.3 ??CA?125?(O*)?(Unit/mL) ? 185.0?H ??TOTAL?IRON?BINDING?CAP?(S*)?(mcg/dL) 251 ? ??UNBOUND?IBC?(mcg/dL) 187?L ? ASSESSMENT/PLAN:?Juan Dominguez Assessment/Plan? #1 metastatic ovarian cancer Patient had malignant pleural effusion as well as ascites fluid left-sided thoracentesis (09/18/2023) Patient had thoracentesis (09/02/2023). 1025 cc of pleural fluid was removed. metastatic ovarian carcinoma with left-sided malignant pleural effusion (09/02/2023), and ascites her CA125 decreased to 163. Abdominal distention and discomfort also significantly improved. CA125 is 175.0 on 03/08/2024 Patient complained of fatigue and tiredness along with some shaking since when she started chemotherapy, shaking has resolved. Chemo was stopped . she was started on NIKKY CT chest abdomen and pelvis with contrast to evaluate status of her disease essentially negative, no adnexal mass, no abdominal or pelvic lymphadenopathy, 02/05/2024. Complete chemotherapy, 18 cycles Taxol and carboplatin, 03/02/2024 Echo 06/2024is good. 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 Will continue closely monitoring #3 anemia Likely from chemotherapy with carboplatin Iron saturation 53%, ferritin 54, B12 366, folate 10.19 Anemia panel prior to next follow-up appointment #4 hypertension and diabetes mellitus type 2 Advised to continue follow-up with PCP Blood pressure well-controlled #5 hypercholesterolemia Continue follow with PCP #6 hypothyroidism Levothyroxine increased to 37.5mcg daily from 25mcg daily, started new dosage on 03/08/2024 TSH was checked to make sure patient is not having iatrogenic thyrotoxicosis TSH 7.07 on 02/13/2024. TSH T4 prior to next follow-up appointment - Follow up on gastroenterology referral for endoscopy and colonoscopy ORDERS: Tumor markers Order # Description [id number] Comprehensive Metabolic Panel + CBC with Auto Diff + CEA + Urinalysis, Automated with Microscopy [id number] Lab Appointment + Comprehensive Metabolic Panel + CBC with Auto Diff + CA 482 [id number] Follow Up Appointment [id number] Follow Up Appointment [id number] Infusion 1 Hour [id number] Infusion 5 Hours [id number] CBC [id number] Lab Appointment [id number] Infusion 5 Hours [id number] CBC [id number] Lab Appointment [id number] Infusion 5 Hours [id number] Comprehensive Metabolic Panel + CBC with Auto Diff + CEA + Urinalysis, Automated with Microscopy [id number] Lab Appointment + Comprehensive Metabolic Panel + CBC with Auto Diff + CA 173 [id number] Follow Up Appointment [id number] Follow Up Appointment [id number] Infusion 1 Hour [id number] Infusion 5 Hours [id number] CBC [id number] Lab Appointment [id number] Infusion 5 Hours [id number] CBC [id number] Lab Appointment [id number] Infusion 5 Hours [id number] Comprehensive Metabolic Panel + CBC with Auto Diff + CEA + Urinalysis, Automated with Microscopy [id number] Lab Appointment + Comprehensive Metabolic Panel + CBC with Auto Diff + CA 957 [id number] Follow Up Appointment [id number] Follow Up Appointment [id number] Infusion 1 Hour [id number] Infusion 5 Hours [id number] CBC [id number] Lab Appointment [id number] Infusion 5 Hours [id number] CBC [id number] Lab Appointment [id number] Infusion 5 Hours [id number] Comprehensive Metabolic Panel + CBC with Auto Diff + CEA + Urinalysis, Automated with Microscopy [id number] Lab Appointment + Comprehensive Metabolic Panel + CBC with Auto Diff + CA 169 [id number] Follow Up Appointment [id number] Follow Up Appointment [id number] Infusion 1 Hour [id number] Infusion 5 Hours [id number] CBC [id number] Lab Appointment [id number] Infusion 5 Hours [id number] Basic Metabolic Panel [id number] Lab Appointment [id number] Infusion 1 Hour [id number] CBC [id number] Lab Appointment [id number] Infusion 5 Hours [id number] Comprehensive Metabolic Panel + CBC with Auto Diff + CEA + Urinalysis, Automated with Microscopy [id number] Lab Appointment + Comprehensive Metabolic Panel + CBC with Auto Diff + CA 625 [id number] Follow Up Appointment [id number] Follow Up Appointment [id number] Infusion 1 Hour [id number] Infusion 5 Hours [id number] CBC [id number] Lab Appointment [id number] Infusion 5 Hours [id number] CBC [id number] Lab Appointment [id number] Infusion 5 Hours [id number] Comprehensive Metabolic Panel + CBC with Auto Diff + CEA + Urinalysis, Automated with Microscopy [id number] Lab Appointment + Comprehensive Metabolic Panel + CBC with Auto Diff + CA 586 [id number] Follow Up Appointment [id number] Follow Up Appointment [id number] Infusion 1 Hour [id number] Infusion 5 Hours [id number] CBC [id number] Lab Appointment [id number] Infusion 5 Hours [id number] CBC [id number] Lab Appointment [id number] Infusion 5 Hours [id number] Comprehensive Metabolic Panel + CBC with Auto Diff + CEA + Urinalysis, Automated with Microscopy [id number] Lab Appointment + Comprehensive Metabolic Panel + CBC with Auto Diff + CA 145 [id number] Follow Up Appointment [id number] Follow Up Appointment [id number] Infusion 1 Hour [id number] Comprehensive Metabolic Panel + CBC with Auto Diff + CEA + Urinalysis, Automated with Microscopy [id number] Follow Up Appointment [id number] Infusion 1 Hour [id number] Basic Metabolic Panel [id number] Lab Appointment [id number] Infusion 1 Hour [id number] Comprehensive Metabolic Panel + CBC with Auto Diff + CEA + Urinalysis, Automated with Microscopy [id number] Follow Up Appointment [id number] Infusion 1 Hour [id number] Comprehensive Metabolic Panel + CBC with Auto Diff + CEA + Urinalysis, Automated with Microscopy [id number] Follow Up Appointment [id number] Infusion 1 Hour [id number] Comprehensive Metabolic Panel + CBC with Auto Diff + CEA + Urinalysis, Automated with Microscopy [id number] Follow Up Appointment [id number] Basic Metabolic Panel [id number] Lab Appointment [id number] Infusion 1 Hour [id number] Basic Metabolic Panel [id number] Lab Appointment [id number] Infusion 1 Hour [id number] Basic Metabolic Panel [id number] Lab Appointment [id number] Infusion 1 Hour [id number] Basic Metabolic Panel [id number] Lab Appointment [id number] Infusion 1 Hour [id number] Basic Metabolic Panel [id number] Lab Appointment [id number] Infusion 1 Hour [id number] Basic Metabolic Panel [id number] Lab Appointment [id number] Infusion 1 Hour [id number] Basic Metabolic Panel [id number] Lab Appointment [id number] Infusion 1 Hour [id number] Basic Metabolic Panel [id number] Lab Appointment [id number] Infusion 1 Hour [id number] Basic Metabolic Panel [id number] Lab Appointment [id number] Infusion 1 Hour [id number] Basic Metabolic Panel [id number] Lab Appointment RETURN TO CLINIC: I reviewed the diagnosis, prognosis, and recommended treatment/procedure options with the patient (and/or their legal quality audit representative), including the potential benefits, risks, side effects and alternative therapies. We also discussed the option of no treatment and the possibility of clinical trial participation, if applicable. All questions were addressed, and they demonstrated understanding. They provided informed consent to proceed with the proposed plan of care. BILLING AND COMPLIANCE: I reviewed external records from providers outside my specialty as summarized above. I spent a total of 50 minutes on this patient?s care on the day of their visit excluding time spent related to any billed procedures. This time includes time spent with the patient as well as time spent documenting in the medical record, reviewing patients records and tests, obtaining history, placing orders, communicating with other healthcare professionals, counseling the patient, family or caregiver, and/or care coordination for the diagnoses above. Electronically Signed by: Kyle Dominguez MD T: 11:17 PM CC: PCP: Amber Segura Referring: Amber Segura This document was completed utilizing speech recognition software. Grammatical errors, random word insertions, pronoun errors, and incomplete sentences are an occasional consequence of this system due to software limitations, ambient noise, and hardware issues. Any formal questions or concerns about the content, text or information contained within the body of this dictation should be directly addressed to the provider for clarification.
== END 2025-01-04 23:59 | disposition home or self-care (01) ==
LOC: SCTC 14:00
PROVIDERS: PCP Family Medicine; Referring Provider Family Medicine; Visit Provider Internal Medicine Hematology & Oncology
DX: Z51.11 Encounter for antineoplastic chemotherapy (principal); C56.9 Malignant neoplasm of unspecified ovary; J91.0 Malignant pleural effusion; R18.0 Malignant ascites; R53.0 Neoplastic (malignant) related fatigue; D64.9 Anemia, unspecified; I10 Essential (primary) hypertension; E11.9 Type 2 diabetes mellitus without complications; E78.00 Pure hypercholesterolemia, unspecified; E03.9 Hypothyroidism, unspecified
CPT/HCPCS: 36591; 80053; 81001; 85025; 86304; 96367; 96372; 96375; 96413; 96415; 96417; A4216; J1100; J1642; J2469; J2506; J3490; J7040; J7050; J9045; J9267; Q3014; Q5126; A9270

== ENCOUNTER → 2025-01-03 | Outpatient (CLI) | payer MEDICARE, MEDICAID, SELFPAY ==
[2025-01-03 11:40] LABS: Glucose Estimated Average 143 mg/dL (80-131); Hemoglobin A1C 6.6 % Hgb (4.8-6.0)
[2025-01-03 12:01] LABS: Alanine Aminotransferase 8 U/L (10-49); Albumin, Serum 4.2 gm/dL (3.4-4.8); Albumin/Globulin Ratio 1.5 (1.2-2.2); Alkaline Phosphatase 119 U/L (46-116); Anion Gap 11 (7-16); Aspartate Amino Transferase 16 U/L (0-34); BUN/Creatinine Ratio 8 Ratio (12-20); Bilirubin,Total 0.5 mg/dL (0.3-1.2); Blood Urea Nitrogen 9 mg/dL (9-23); Calcium 9.8 mg/dL (8.3-10.6); Calcium (Corrected) 9.8 mg/dL (8.5-10.1); Carbon Dioxide 24.6 mMol/L (20.0-31.0); Cardiac Risk Estimate 6.7 RATIO (3.7-5.6); Chloride 106 mMol/L (98-107); Cholesterol 208 mg/dL (132-200); Creatinine (Component) 1.1 mg/dL (0.6-1.3); Free T4 (Free Thyroxine) 1.44 ng/dL (0.89-1.76); Globulin 2.8 gm/dL (2.3-3.5); Glucose 154 mg/dL (74-106); HDL Cholesterol 31 mg/dL (40-60); LDL Cholesterol,Calculated 120 mg/dL (0-130); Osmolality,Calculated 284 (275-295); Potassium 5.0 mMol/L (3.4-5.1); Sodium 142 mMol/L (136-145); Thyroid Stimulating Hormone 4.34 uIU/mL (0.55-4.78); Total Protein 7.0 gm/dL (5.7-8.2); Triglycerides 285 mg/dL (30-150); eGFR 52 See Note
== END | disposition home or self-care (01) ==
LOC: COPL 10:15
PROVIDERS: PCP Family Medicine; Referring Provider Family Medicine; Visit Provider Family Medicine
DX: I10 Essential (primary) hypertension (principal); E03.9 Hypothyroidism, unspecified; E11.9 Type 2 diabetes mellitus without complications; E78.2 Mixed hyperlipidemia
CPT/HCPCS: 36415; 80053; 80061; 83036; 84439; 84443

== ENCOUNTER 2025-02-01 07:20 | Outpatient (RCR) | payer MEDICARE, MEDICAID, SELFPAY ==
[2025-01-10 16:03] LABS: Collection Type, Urine Voided
[2025-01-10 16:09] LABS: Basophils # (Auto) 0.1 Thou/mm3 (0.0-0.2); Basophils % (Auto) 1 % (0-2.5); Eosinophils # (Auto) 0.0 Thou/mm3 (0.0-0.5); Eosinophils % (Auto) 0 % (0-10); Hematocrit 31.6 % (36.0-46.0); Hemoglobin 10.5 g/dL (12.0-16.0); Immature Granulocytes Auto 0.03 Thou/mm3 (0.00-0.00); Lymphocytes # (Auto) 2.1 Thou/mm3 (1.0-4.8); Lymphocytes % (Auto) 20 % (10-50); Mean Corpuscular HGB Conc 33.2 g/dl (31.0-37.0); Mean Corpuscular Hemoglobin 35.1 pg (25.0-35.0); Mean Corpuscular Volume 106 fL (80-100); Monocytes # (Auto) 0.7 Thou/mm3 (0.0-0.8); Monocytes % (Auto) 6 % (0-12); Neutrophils # (Auto) 7.4 Thou/mm3 (1.8-7.7); Neutrophils % (Auto) 72 % (37-80); Nucleated Red Blood Cell # 0.00 Thou/mm3 (0.00-0.00); Nucleated Red Blood Cell % 0 /100 WBC (0); Platelet Count 157 Thou/mm3 (140-440); RDW Standard Deviation 70.4 fL (36.4-46.3); Red Blood Count 2.99 Miln/mm3 (4.00-5.20); White Blood Count 10.3 Thou/mm3 (3.6-11.0)
[2025-01-10 16:34] LABS: Bilirubin,Urine Negative (Negative); Blood,Urine Negative (Negative); Clarity,Urine Clear (Clear/Hazy); Color,Urine Lt-Yellow (Lt Yel-Yel); Glucose, Urine 4+ (Negative); Ketones,Urine Negative (Negative); Leukocyte Esterase,Urine Positive (Negative); Nitrite,Urine Negative (Negative); PH,Urine 5.0 (5.0-7.0); Protein,Urine Negative (Neg - Trace); RBC,Urine 1 /hpf (0-3); Specific Gravity,Urine 1.032 (1.001-1.035); Squamous Epithelial Cell,Urine 9 /hpf (0-5); Transitional Epi Cells,Urine 1 /hpf (0-5); Urobilinogen,Urine Negative mg/dL (0.0-1.0); WBC,Urine 10 /hpf (0-5)
[2025-01-10 16:41] LABS: Alanine Aminotransferase 8 U/L (10-49); Albumin, Serum 4.2 gm/dL (3.4-4.8); Albumin/Globulin Ratio 1.6 (1.2-2.2); Alkaline Phosphatase 90 U/L (46-116); Anion Gap 12 (7-16); Aspartate Amino Transferase 10 U/L (0-34); BUN/Creatinine Ratio 13 Ratio (12-20); Bilirubin,Total 0.4 mg/dL (0.3-1.2); Blood Urea Nitrogen 16 mg/dL (9-23); Calcium 8.9 mg/dL (8.3-10.6); Calcium (Corrected) 8.9 mg/dL (8.5-10.1); Carbon Dioxide 24.2 mMol/L (20.0-31.0); Chloride 102 mMol/L (98-107); Creatinine (Component) 1.2 mg/dL (0.6-1.3); Globulin 2.6 gm/dL (2.3-3.5); Glucose 210 mg/dL (74-106); Osmolality,Calculated 282 (275-295); Potassium 4.0 mMol/L (3.4-5.1); Sodium 138 mMol/L (136-145); Total Protein 6.8 gm/dL (5.7-8.2); eGFR 47 See Note
[2025-01-10 16:46] LABS: CA 125 150.0 U/mL (<30.2)
[2025-01-31 15:17] LABS: Collection Type, Urine Voided
[2025-01-31 15:21] LABS: Basophils # (Auto) 0.1 Thou/mm3 (0.0-0.2); Basophils % (Auto) 1 % (0-2.5); Eosinophils # (Auto) 0.1 Thou/mm3 (0.0-0.5); Eosinophils % (Auto) 2 % (0-10); Hematocrit 35.3 % (36.0-46.0); Hemoglobin 11.5 g/dL (12.0-16.0); Immature Granulocytes Auto 0.02 Thou/mm3 (0.00-0.00); Lymphocytes # (Auto) 2.3 Thou/mm3 (1.0-4.8); Lymphocytes % (Auto) 31 % (10-50); Mean Corpuscular HGB Conc 32.6 g/dl (31.0-37.0); Mean Corpuscular Hemoglobin 34.1 pg (25.0-35.0); Mean Corpuscular Volume 105 fL (80-100); Monocytes # (Auto) 0.5 Thou/mm3 (0.0-0.8); Monocytes % (Auto) 6 % (0-12); Neutrophils # (Auto) 4.6 Thou/mm3 (1.8-7.7); Neutrophils % (Auto) 60 % (37-80); Nucleated Red Blood Cell # 0.00 Thou/mm3 (0.00-0.00); Nucleated Red Blood Cell % 0 /100 WBC (0); Platelet Count 250 Thou/mm3 (140-440); RDW Standard Deviation 59.7 fL (36.4-46.3); Red Blood Count 3.37 Miln/mm3 (4.00-5.20); White Blood Count 7.5 Thou/mm3 (3.6-11.0)
[2025-01-31 15:40] LABS: Bacteria,Urine Rare; Bilirubin,Urine Negative (Negative); Blood,Urine Negative (Negative); Clarity,Urine Clear (Clear/Hazy); Color,Urine Lt-Yellow (Lt Yel-Yel); Glucose, Urine 4+ (Negative); Ketones,Urine Negative (Negative); Leukocyte Esterase,Urine Positive (Negative); Nitrite,Urine Negative (Negative); PH,Urine 6.0 (5.0-7.0); Protein,Urine Negative (Neg - Trace); RBC,Urine 1 /hpf (0-3); Specific Gravity,Urine 1.023 (1.001-1.035); Squamous Epithelial Cell,Urine 3 /hpf (0-5); Urobilinogen,Urine Negative mg/dL (0.0-1.0); WBC,Urine 2 /hpf (0-5)
[2025-01-31 15:52] LABS: Alanine Aminotransferase 8 U/L (10-49); Albumin, Serum 4.1 gm/dL (3.4-4.8); Albumin/Globulin Ratio 1.9 (1.2-2.2); Alkaline Phosphatase 72 U/L (46-116); Anion Gap 13 (7-16); Aspartate Amino Transferase 13 U/L (0-34); BUN/Creatinine Ratio 15 Ratio (12-20); Bilirubin,Total 0.5 mg/dL (0.3-1.2); Blood Urea Nitrogen 15 mg/dL (9-23); Calcium 8.7 mg/dL (8.3-10.6); Calcium (Corrected) 8.7 mg/dL (8.5-10.1); Carbon Dioxide 26.8 mMol/L (20.0-31.0); Chloride 104 mMol/L (98-107); Creatinine (Component) 1.0 mg/dL (0.6-1.3); Globulin 2.2 gm/dL (2.3-3.5); Glucose 144 mg/dL (74-106); Osmolality,Calculated 290 (275-295); Potassium 4.0 mMol/L (3.4-5.1); Sodium 144 mMol/L (136-145); Total Protein 6.3 gm/dL (5.7-8.2); eGFR 58 See Note
[2025-01-31 15:57] LABS: CA 125 120.0 U/mL (<30.2); Carcinoembryonic Antigen 2.7 ng/mL (0.0-5.0)
== END 2025-02-04 23:59 | disposition home or self-care (01) ==
LOC: SCTC 07:20
PROVIDERS: PCP Family Medicine; Referring Provider Family Medicine; Visit Provider Internal Medicine Hematology & Oncology
DX: Z51.11 Encounter for antineoplastic chemotherapy (principal); C56.9 Malignant neoplasm of unspecified ovary; J91.0 Malignant pleural effusion; R18.0 Malignant ascites; R53.0 Neoplastic (malignant) related fatigue; D64.9 Anemia, unspecified; I10 Essential (primary) hypertension; E11.9 Type 2 diabetes mellitus without complications; E78.00 Pure hypercholesterolemia, unspecified; E03.9 Hypothyroidism, unspecified; Z79.890 Hormone replacement therapy; Z79.84 Long term (current) use of oral hypoglycemic drugs
CPT/HCPCS: 36591; 80053; 81001; 82378; 85025; 86304; 96413; A4216; J1100; J1642; J2405; J3490; J7040; Q5126

== ENCOUNTER 2025-02-28 13:21 | Outpatient (RCR) | payer MEDICARE, MEDICAID, SELFPAY ==
[2025-02-21 13:25] LABS: Basophils # (Auto) 0.1 Thou/mm3 (0.0-0.2); Basophils % (Auto) 1 % (0-2.5); Eosinophils # (Auto) 0.2 Thou/mm3 (0.0-0.5); Eosinophils % (Auto) 2 % (0-10); Hematocrit 38.6 % (36.0-46.0); Hemoglobin 12.5 g/dL (12.0-16.0); Immature Granulocytes Auto 0.02 Thou/mm3 (0.00-0.00); Lymphocytes # (Auto) 2.0 Thou/mm3 (1.0-4.8); Lymphocytes % (Auto) 30 % (10-50); Mean Corpuscular HGB Conc 32.4 g/dl (31.0-37.0); Mean Corpuscular Hemoglobin 33.1 pg (25.0-35.0); Mean Corpuscular Volume 102 fL (80-100); Monocytes # (Auto) 0.5 Thou/mm3 (0.0-0.8); Monocytes % (Auto) 7 % (0-12); Neutrophils # (Auto) 4.0 Thou/mm3 (1.8-7.7); Neutrophils % (Auto) 60 % (37-80); Nucleated Red Blood Cell # 0.00 Thou/mm3 (0.00-0.00); Nucleated Red Blood Cell % 0 /100 WBC (0); Platelet Count 197 Thou/mm3 (140-440); RDW Standard Deviation 53.5 fL (36.4-46.3); Red Blood Count 3.78 Miln/mm3 (4.00-5.20); White Blood Count 6.7 Thou/mm3 (3.6-11.0)
[2025-02-21 13:44] LABS: Magnesium 1.8 mg/dL (1.6-2.6)
[2025-02-21 13:45] LABS: Alanine Aminotransferase 8 U/L (10-49); Albumin, Serum 4.4 gm/dL (3.4-4.8); Albumin/Globulin Ratio 1.4 (1.2-2.2); Alkaline Phosphatase 72 U/L (46-116); Anion Gap 11 (7-16); Aspartate Amino Transferase 13 U/L (0-34); BUN/Creatinine Ratio 16 Ratio (12-20); Bilirubin,Total 0.5 mg/dL (0.3-1.2); Blood Urea Nitrogen 16 mg/dL (9-23); Calcium 9.6 mg/dL (8.3-10.6); Calcium (Corrected) 9.6 mg/dL (8.5-10.1); Carbon Dioxide 23.8 mMol/L (20.0-31.0); Chloride 106 mMol/L (98-107); Creatinine (Component) 1.0 mg/dL (0.6-1.3); Globulin 3.1 gm/dL (2.3-3.5); Glucose 139 mg/dL (74-106); Osmolality,Calculated 284 (275-295); Potassium 3.8 mMol/L (3.4-5.1); Sodium 141 mMol/L (136-145); Total Protein 7.5 gm/dL (5.7-8.2); eGFR 58 See Note
[2025-02-21 14:02] LABS: CA 125 135.0 U/mL (<30.2); Carcinoembryonic Antigen 2.7 ng/mL (0.0-5.0)
[2025-02-21 16:02] LABS: Collection Type, Urine Voided
[2025-02-21 17:00] LABS: Bilirubin,Urine Negative (Negative); Blood,Urine Negative (Negative); Clarity,Urine Clear (Clear/Hazy); Color,Urine Lt-Yellow (Lt Yel-Yel); Glucose, Urine 4+ (Negative); Ketones,Urine Negative (Negative); Nitrite,Urine Negative (Negative); PH,Urine 5.0 (5.0-7.0); Protein,Urine Negative (Neg - Trace); RBC,Urine < 1 /hpf (0-3); Specific Gravity,Urine 1.029 (1.001-1.035); Squamous Epithelial Cell,Urine 3 /hpf (0-5); Urobilinogen,Urine Negative mg/dL (0.0-1.0); WBC,Urine < 1 /hpf (0-5)
[2025-02-21 17:12] LABS: Leukocyte Esterase,Urine Trace (Negative)
--- NOTE | 2025-03-05 22:51 | CTCFLWUP_ITS ---
Patient: AARON OSMAN : 1950 Page 2 of 2 FOLLOW UP NOTE DATE OF SERVICE: 02/28/2025 NAME: AARON OSMAN ACCOUNT: [id number] : 1950 AGE: 75 INTERVAL HISTORY: Patient received only bevacizumab with the last treatment. Patient has refused to take CarboTaxol as she feels very fatigued and tired. Patient is asking a break from chemotherapy and will start her chemotherapy after April after the holidays are over. Patient want to continue bevacizumab Laboratory, Imaging, and Diagnostic Test Results - CA125: 89 (previous result, date not specified) - CA: 2.2 (date not specified) - Denosumab: Administered on 08/10/2024 03/23/2013: Ms. Osman had the following surgery done at [facility]. 05/10/2013 - 08/23/2013: Ms. Osman received 6 cycles of adjuvant carboplatin and paclitaxel here at [facility]. 08/25/2023: Patient had chest x-rays done due to persistent cough 08/27/2023 CT scan of the chest with and without contrast was obtained 09/02/2023: Ms. Osman had ultrasound-guided left thoracentesis. 1025 cc of pleural fluid was removed. 09/10/2023: CT scan of the abdomen and pelvis with and without IV contrast 09/10/2023: Transvaginal ultrasound 09/18/2023: Ms. Osman had left-sided thoracentesis 10/04/2023: PET/CT scan? 10/27/2023: CA 125 is 874.0 10/28/2023: Ms. Osman received first weekly dose of Taxol and carboplatin. 11/04/2023: CA 125 is 513. 11/04/2023: Ms. Osman received second dose of weekly Taxol and carboplatin. 11/10/2023: CA 125 is 390. 02/05/2024: CT of chest abdomen and pelvis with contrast, essentially negative, no evidence for mass, no abdominal or pelvic lymphadenopathy 02/17/2024: CA125 169.0 03/08/2024: CEA 125 is 175.0 ONCOLOGY HISTORY:?CloneBlock Oncology Hx? Patient completed 18 cycles of carboplatin and Taxol on 03/02/2024. Patient started bevacizumab 15 mg/kg on 03/09/2024. Patient reports increased energy level since she completed carboplatin and Taxol and started bevacizumab. Previously levothyroxine was increased to 37.5mcg, started new dosage on . CA125 was 175 on 03/08/2024. Patient reports good appetite. Ambulating well without assistance. Patient denies neuropathy. INTERVAL HISTORY: PREVIOUS NOTES: Ms. Osman is here at [facility] accompanied by her daughter, Shubham. Patient completed cycle 16 of weekly dose of carboplatin and Taxol. CA125 is 169.0. CT of chest abdomen and pelvis with contrast done on 02/05/2024 showed no liver lesions, no adnexal mass, no abdominal or pelvic lymphadenopathy. TSH is 7.07 T4 is 1.40, 02/13/2024. Patient is taking levothyroxine 25 mcg daily. Unfortunately, iron saturation ferritin B12 were not collected, hemoglobin 10.2, MCV 99. Patient complaining of feeling tired. Patient denies neuropathy. Patient reports good appetite. Patient denies any other concerns or complaints. She denies any cough, chest pain, abdominal pain or leg cramps. Ambulating well without any help. HISTORY: Aaron Osman is a 75-year-old SPA speaking female with history of type 2 diabetes, hypertension, hypercholesterolemia has the following oncology history. 02/16/2013: CA 125 is 319.9. 02/17/2013: Transvaginal entrance abdominal ultrasound? 03/23/2013: Ms. Osman had the following surgery done at [facility]. 05/10/2013 - 08/23/2013: Ms. Osman received 6 cycles of adjuvant carboplatin and paclitaxel here at [facility]. 08/25/2023: Patient had chest x-rays done due to persistent cough 08/27/2023 CT scan of the chest with and without contrast was obtained 09/02/2023: Ms. Osman had ultrasound-guided left thoracentesis. 1025 cc of pleural fluid was removed. 09/10/2023: CT scan of the abdomen and pelvis with and without IV contrast 09/10/2023: Transvaginal ultrasound 09/18/2023: Ms. Osman had left-sided thoracentesis 10/04/2023: PET/CT scan? 10/27/2023: CA 125 is 874.0 10/28/2023: Ms. Osman received first weekly dose of Taxol and carboplatin. 11/04/2023: CA 125 is 513. 11/04/2023: Ms. Osman received second dose of weekly Taxol and carboplatin. 11/10/2023: CA 125 is 390. 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 S/p adjuvant chemotherapy with Taxol and carboplatin (05/10/2013 - 08/23/2013) s/p Taxol and carboplatin 18 cycles completed 03/02/2024. Bevacizumab 15 mg/kg every 3 weeks started on 03/09/2024 Type 2 diabetes without any peripheral neuropathy. Hypertension. Hypercholesterolemia. DATE OF DIAGNOSIS: 09/02/2023 STAGE/TNM: IIIC T3b N1 M0 TREATMENT HISTORY: Care?Plan Start?Date Cycle Day Intent CARBOplatin?AUC?6,?PACLItaxel?175?-?Rec?or?Met 05/10/2013 1 21 Curative?(adjuvant) CARBOplatin?AUC?6,?PACLItaxel?175?-?Rec?or?Met 05/10/2013 1 21 Curative?(adjuvant) PACLItaxel?60mg/m*2?+?Carboplatin?AUC?2?-weekly?x?18weeks?2 10/28/2023 1 7 Palliative Bevacizumab?15?mg/kg?-?Met 03/09/2024 1 21 Palliative FERRlecit?she 06/08/2024 1 7 Maintenance CARBOplatin?AUC?5,?PACLitaxel?80mg/m*2 01/11/2025 1 21 Palliative Zoledronic?Acid?4?mg 01/11/2025 1 90 Palliative CARBOplatin?AUC?6;?PACLitaxel?175 01/11/2025 1 21 Palliative HISTORY OF PRESENT ILLNESS: OTHER MEDICAL HISTORY/CONDITIONS: Ovarian cancer - dx 03/2013 HTN Diabetes Hypothyroid Hyperlipidemia ANH-BSO - 03/23/2013 x 3 Total right shoulder replacement - 10/2022- Dr. Claudio FAMILY HISTORY: Cancer?History:?Denies Patient?denies?family?cancer?history. SOCIAL HISTORY: Occupational?History:?Retired Education?Level:?Completed something less than 8th grade Marital?Status:? Tobacco Use:?Quit 50-60yrs ago - Socially ETOH?Use:?Denies Drug?Note:?Denies Social?History?Note:?Lives?with? APPLICATION SPECIALIST HISTORY: Menarche?-?Age:?12 Menopause:?53 :?5 Live?Births:?5 Age?1st?:?24 MEDICATIONS: 1. Benadryl Allergy - 25 mg 2 tab Daily 2. Crestor - 20 mg 1 tab Daily 3. dexamethasone - 4 mg 5 tab Daily 4. Jardiance - 25 mg 1 tab Daily 5. levothyroxine - 50 mcg 1 tab Daily 6. lisinopril - 20 mg 1 tab Daily 7. lisinopril - 10 mg 1 tab Daily 8. Pepcid - 20 mg 1 tab Daily?Palabra Meds? Medications Last Reconciled by Amber Moran MD on 02/28/2025 ALLERGIES: No Known Drug Allergies REVIEW OF SYSTEMS: A complete 14-point review of systems was performed and is negative except as noted in interval history. PHYSICAL EXAMINATION:?CloneBlock PE? VITAL SIGNS: Temperature?99.1, B/P?152/74, Oxygen?Saturation?95% Weight?129?lbs (Change?since?02/22/25:?-0.6?lbs) PAIN: 0 - No pain ECOG Performance Status: 1 - Symptomatic; ambulatory; restricted in strenuous activity NEURO: Alert and oriented x4 EYE: Conjunctivae is white CHEST: Breathing on room air LABORATORY DATA: I have personally reviewed and interpreted each of the patient?s relevant lab tests, abnormal findings are below: Date 02/21/25 ??WHITE?BLOOD?COUNT?(Thou/mm3) 6.7 ??RED?BLOOD?COUNT?(Miln/mm3) 3.78?L ??HEMOGLOBIN?(gm/dl) 12.5 ??HEMATOCRIT?(%) 38.6 ??PLATELET?COUNT?(Thou/mm3) 197 ??NEUTROPHILS?%,?AUTO?(%) 60 ??LYMPH?%,?AUTO?(%) 30 ??NEUTROPHILS,?AUTO?(Thou/mm3) 4.0 ??GLUCOSE,RANDOM?(mg/dL) 139?H ??BLOOD?UREA?NITROGEN?(mg/dL) 16 ??CREATININE?(mg/dL) 1.00 ??SODIUM?(mmol/L) 141 ??POTASSIUM?(mmol/L) 3.8 ??CHLORIDE?(mmol/L) 106 ??CrCl?(CandG)?(ml/min) 43.25 ??AST/SGOT?(Unit/L) 13 ??ALT/SGPT?(Unit/L) 8?L ??ALKALINE?PHOSPHATASE?(Unit/L) 72 ??BILIRUBIN,?TOTAL?(mg/dL) 0.5 ??PROTEIN?TOTAL?(gm/dl) 7.5 ??ALBUMIN,?SERUM?(gm/dl) 4.4 ??GLOBULIN?(gm/dl) 3.1 ??ALBUMIN/GLOBULIN?RATIO 1.4 ??CALCIUM,?SERUM?(mg/dL) 9.6 ??CALCIUM?SERUM?(CORRECTED)?(mg/dL) 9.6 ??MAGNESIUM?(mg/dL) 1.8 ??CEA?(O*)?(ng/ml) 2.7 ASSESSMENT/PLAN:?Juan Dominguez Assessment/Plan? #1 metastatic ovarian cancer Patient had malignant pleural effusion as well as ascites fluid left-sided thoracentesis (09/18/2023) Patient had thoracentesis (09/02/2023). 1025 cc of pleural fluid was removed. metastatic ovarian carcinoma with left-sided malignant pleural effusion (09/02/2023), and ascites her CA125 decreased to 163. Abdominal distention and discomfort also significantly improved. CA125 is 175.0 on 03/08/2024 Patient complained of fatigue and tiredness along with some shaking since when she started chemotherapy, shaking has resolved. Chemo was stopped . she was started on NIKKY CT chest abdomen and pelvis with contrast to evaluate status of her disease essentially negative, no adnexal mass, no abdominal or pelvic lymphadenopathy, 02/05/2024. Complete chemotherapy, 18 cycles Taxol and carboplatin, 03/02/2024 Echo 06/2024is good. 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 Will continue closely monitoring #3 anemia Likely from chemotherapy with carboplatin Iron saturation 53%, ferritin 54, B12 366, folate 10.19 Anemia panel prior to next follow-up appointment #4 hypertension and diabetes mellitus type 2 Advised to continue follow-up with PCP Blood pressure well-controlled #5 hypercholesterolemia Continue follow with PCP #6 hypothyroidism Levothyroxine increased to 37.5mcg daily from 25mcg daily, started new dosage on 03/08/2024 TSH was checked to make sure patient is not having iatrogenic thyrotoxicosis TSH 7.07 on 02/13/2024. TSH T4 prior to next follow-up appointment - Follow up on gastroenterology referral for endoscopy and colonoscopy ORDERS: Order # Description [id number] Comprehensive Metabolic Panel + CBC + Magnesium + CA 223 [id number] Comprehensive Metabolic Panel + CBC with Auto Diff + CEA + Urinalysis, Automated with Microscopy [id number] Follow Up Appointment [id number] Infusion 1 Hour [id number] Follow Up Appointment [id number] Infusion 5 Hours [id number] Comprehensive Metabolic Panel + CBC + Magnesium + CA 506 [id number] Comprehensive Metabolic Panel + CBC with Auto Diff + CEA + Urinalysis, Automated with Microscopy [id number] Follow Up Appointment [id number] Infusion 1 Hour [id number] Follow Up Appointment [id number] Infusion 5 Hours [id number] Basic Metabolic Panel [id number] Lab Appointment [id number] Infusion 1 Hour [id number] Comprehensive Metabolic Panel + CBC + Magnesium + CA 026 [id number] Comprehensive Metabolic Panel + CBC with Auto Diff + CEA + Urinalysis, Automated with Microscopy [id number] Follow Up Appointment [id number] Infusion 1 Hour [id number] Follow Up Appointment [id number] Infusion 5 Hours [id number] Comprehensive Metabolic Panel + CBC with Auto Diff + CEA + Urinalysis, Automated with Microscopy [id number] Comprehensive Metabolic Panel + CBC + Magnesium + CA 993 [id number] Follow Up Appointment [id number] Infusion 1 Hour [id number] Follow Up Appointment [id number] Comprehensive Metabolic Panel + CBC with Auto Diff + CEA + Urinalysis, Automated with Microscopy [id number] Follow Up Appointment [id number] Infusion 1 Hour [id number] Comprehensive Metabolic Panel + CBC with Auto Diff + CEA + Urinalysis, Automated with Microscopy [id number] Follow Up Appointment [id number] Infusion 1 Hour [id number] Basic Metabolic Panel [id number] Lab Appointment [id number] Infusion 1 Hour [id number] Comprehensive Metabolic Panel + CBC with Auto Diff + CEA + Urinalysis, Automated with Microscopy [id number] Follow Up Appointment [id number] Infusion 1 Hour [id number] Comprehensive Metabolic Panel + CBC with Auto Diff + CEA + Urinalysis, Automated with Microscopy [id number] Follow Up Appointment [id number] Basic Metabolic Panel [id number] Lab Appointment [id number] Infusion 1 Hour [id number] Basic Metabolic Panel [id number] Lab Appointment [id number] Infusion 1 Hour [id number] Basic Metabolic Panel [id number] Lab Appointment [id number] Infusion 1 Hour [id number] Basic Metabolic Panel [id number] Lab Appointment [id number] Infusion 1 Hour [id number] Basic Metabolic Panel [id number] Lab Appointment [id number] Infusion 1 Hour [id number] Basic Metabolic Panel [id number] Lab Appointment [id number] Infusion 1 Hour [id number] Basic Metabolic Panel [id number] Lab Appointment [id number] Infusion 1 Hour [id number] Basic Metabolic Panel [id number] Lab Appointment [id number] Infusion 1 Hour [id number] Basic Metabolic Panel [id number] Lab Appointment [id number] Infusion 1 Hour [id number] Basic Metabolic Panel [id number] Lab Appointment RETURN TO CLINIC: I reviewed the diagnosis, prognosis, and recommended treatment/procedure options with the patient (and/or their legal technology sales representative), including the potential benefits, risks, side effects and alternative therapies. We also discussed the option of no treatment and the possibility of clinical trial participation, if applicable. All questions were addressed, and they demonstrated understanding. They provided informed consent to proceed with the proposed plan of care. BILLING AND COMPLIANCE: I reviewed external records from providers outside my specialty as summarized above. I spent a total of 50 minutes on this patient?s care on the day of their visit excluding time spent related to any billed procedures. This time includes time spent with the patient as well as time spent documenting in the medical record, reviewing patients records and tests, obtaining history, placing orders, communicating with other healthcare professionals, counseling the patient, family or caregiver, and/or care coordination for the diagnoses above. Electronically Signed by: Kyle Dominguez MD T: 10:49 PM CC: PCP: Pancho Michele Referring: Pancho Michele This document was completed utilizing speech recognition software. Grammatical errors, random word insertions, pronoun errors, and incomplete sentences are an occasional consequence of this system due to software limitations, ambient noise, and hardware issues. Any formal questions or concerns about the content, text or information contained within the body of this dictation should be directly addressed to the provider for clarification.
== END 2025-03-06 23:59 | disposition home or self-care (01) ==
LOC: SCTC 13:21
PROVIDERS: PCP Family Medicine; Referring Provider Family Medicine; Visit Provider Internal Medicine Hematology & Oncology
DX: Z51.11 Encounter for antineoplastic chemotherapy (principal); C56.9 Malignant neoplasm of unspecified ovary; J91.0 Malignant pleural effusion; R18.0 Malignant ascites; D64.9 Anemia, unspecified; I10 Essential (primary) hypertension; E11.9 Type 2 diabetes mellitus without complications; E78.00 Pure hypercholesterolemia, unspecified; E03.9 Hypothyroidism, unspecified
CPT/HCPCS: 36591; 80053; 81001; 82378; 83735; 85025; 86304; 96413; 99212; A4216; J1642; J3490; Q5126; G0463

== ENCOUNTER 2025-04-05 08:26 | Outpatient (RCR) | payer MEDICARE, MEDICAID, SELFPAY ==
[2025-03-14 16:28] LABS: Collection Type, Urine Voided
[2025-03-14 16:36] LABS: Basophils # (Auto) 0.0 Thou/mm3 (0.0-0.2); Basophils % (Auto) 0 % (0-2.5); Eosinophils # (Auto) 0.2 Thou/mm3 (0.0-0.5); Eosinophils % (Auto) 3 % (0-10); Hematocrit 38.5 % (36.0-46.0); Hemoglobin 12.1 g/dL (12.0-16.0); Immature Granulocytes Auto 0.02 Thou/mm3 (0.00-0.00); Lymphocytes # (Auto) 2.1 Thou/mm3 (1.0-4.8); Lymphocytes % (Auto) 29 % (10-50); Mean Corpuscular HGB Conc 31.4 g/dl (31.0-37.0); Mean Corpuscular Hemoglobin 31.5 pg (25.0-35.0); Mean Corpuscular Volume 100 fL (80-100); Monocytes # (Auto) 0.4 Thou/mm3 (0.0-0.8); Monocytes % (Auto) 6 % (0-12); Neutrophils # (Auto) 4.4 Thou/mm3 (1.8-7.7); Neutrophils % (Auto) 62 % (37-80); Nucleated Red Blood Cell # 0.00 Thou/mm3 (0.00-0.00); Nucleated Red Blood Cell % 0 /100 WBC (0); Platelet Count 183 Thou/mm3 (140-440); RDW Standard Deviation 52.2 fL (36.4-46.3); Red Blood Count 3.84 Miln/mm3 (4.00-5.20); White Blood Count 7.1 Thou/mm3 (3.6-11.0)
[2025-03-14 16:51] LABS: Bacteria,Urine Rare; Bilirubin,Urine Negative (Negative); Blood,Urine 1+ (Negative); Clarity,Urine Clear (Clear/Hazy); Color,Urine Lt-Yellow (Lt Yel-Yel); Glucose, Urine 4+ (Negative); Ketones,Urine Negative (Negative); Leukocyte Esterase,Urine Positive (Negative); Nitrite,Urine Negative (Negative); PH,Urine 5.0 (5.0-7.0); Protein,Urine Trace (Neg - Trace); RBC,Urine 2 /hpf (0-3); Specific Gravity,Urine 1.029 (1.001-1.035); Squamous Epithelial Cell,Urine 5 /hpf (0-5); Urobilinogen,Urine Negative mg/dL (0.0-1.0); WBC,Urine 4 /hpf (0-5)
[2025-03-14 17:00] LABS: Alanine Aminotransferase < 7 U/L (10-49); Albumin, Serum 4.1 gm/dL (3.4-4.8); Albumin/Globulin Ratio 1.1 (1.2-2.2); Alkaline Phosphatase 70 U/L (46-116); Anion Gap 11 (7-16); Aspartate Amino Transferase 12 U/L (0-34); BUN/Creatinine Ratio 13 Ratio (12-20); Bilirubin,Total 0.5 mg/dL (0.3-1.2); Blood Urea Nitrogen 12 mg/dL (9-23); Calcium 9.0 mg/dL (8.3-10.6); Calcium (Corrected) 9.0 mg/dL (8.5-10.1); Carbon Dioxide 27.6 mMol/L (20.0-31.0); Chloride 105 mMol/L (98-107); Creatinine (Component) 0.9 mg/dL (0.6-1.3); Globulin 3.6 gm/dL (2.3-3.5); Glucose 101 mg/dL (74-106); Osmolality,Calculated 286 (275-295); Potassium 3.8 mMol/L (3.4-5.1); Sodium 144 mMol/L (136-145); Total Protein 7.7 gm/dL (5.7-8.2); eGFR > 60 See Note
[2025-03-14 17:07] LABS: CA 125 174.0 U/mL (<30.2); Carcinoembryonic Antigen 2.5 ng/mL (0.0-5.0)
[2025-04-04 12:15] LABS: Collection Type, Urine Voided
[2025-04-04 12:18] LABS: Basophils # (Auto) 0.1 Thou/mm3 (0.0-0.2); Basophils % (Auto) 1 % (0-2.5); Eosinophils # (Auto) 0.2 Thou/mm3 (0.0-0.5); Eosinophils % (Auto) 3 % (0-10); Hematocrit 42.2 % (36.0-46.0); Hemoglobin 13.5 g/dL (12.0-16.0); Immature Granulocytes Auto 0.02 Thou/mm3 (0.00-0.00); Lymphocytes # (Auto) 2.4 Thou/mm3 (1.0-4.8); Lymphocytes % (Auto) 35 % (10-50); Mean Corpuscular HGB Conc 32.0 g/dl (31.0-37.0); Mean Corpuscular Hemoglobin 31.5 pg (25.0-35.0); Mean Corpuscular Volume 99 fL (80-100); Monocytes # (Auto) 0.5 Thou/mm3 (0.0-0.8); Monocytes % (Auto) 8 % (0-12); Neutrophils # (Auto) 3.6 Thou/mm3 (1.8-7.7); Neutrophils % (Auto) 54 % (37-80); Nucleated Red Blood Cell # 0.00 Thou/mm3 (0.00-0.00); Nucleated Red Blood Cell % 0 /100 WBC (0); Platelet Count 195 Thou/mm3 (140-440); RDW Standard Deviation 54.7 fL (36.4-46.3); Red Blood Count 4.28 Miln/mm3 (4.00-5.20); White Blood Count 6.8 Thou/mm3 (3.6-11.0)
[2025-04-04 12:28] LABS: Bacteria,Urine Rare; Bilirubin,Urine Negative (Negative); Blood,Urine Negative (Negative); Clarity,Urine Clear (Clear/Hazy); Color,Urine Lt-Yellow (Lt Yel-Yel); Glucose, Urine 4+ (Negative); Ketones,Urine Negative (Negative); Leukocyte Esterase,Urine Positive (Negative); Nitrite,Urine Negative (Negative); PH,Urine 5.0 (5.0-7.0); Protein,Urine Trace (Neg - Trace); RBC,Urine 5 /hpf (0-3); Specific Gravity,Urine 1.029 (1.001-1.035); Squamous Epithelial Cell,Urine 5 /hpf (0-5); Urobilinogen,Urine Negative mg/dL (0.0-1.0); WBC,Urine 7 /hpf (0-5)
[2025-04-04 12:51] LABS: Alanine Aminotransferase 7 U/L (10-49); Albumin, Serum 4.1 gm/dL (3.4-4.8); Albumin/Globulin Ratio 1.1 (1.2-2.2); Alkaline Phosphatase 73 U/L (46-116); Anion Gap 12 (7-16); Aspartate Amino Transferase < 8 U/L (0-34); BUN/Creatinine Ratio 16 Ratio (12-20); Bilirubin,Total 0.4 mg/dL (0.3-1.2); Blood Urea Nitrogen 16 mg/dL (9-23); Calcium 9.5 mg/dL (8.3-10.6); Calcium (Corrected) 9.5 mg/dL (8.5-10.1); Carbon Dioxide 23.5 mMol/L (20.0-31.0); Chloride 105 mMol/L (98-107); Creatinine (Component) 1.0 mg/dL (0.6-1.3); Globulin 3.8 gm/dL (2.3-3.5); Glucose 120 mg/dL (74-106); Osmolality,Calculated 281 (275-295); Potassium 3.7 mMol/L (3.4-5.1); Sodium 140 mMol/L (136-145); Total Protein 7.9 gm/dL (5.7-8.2); eGFR 58 See Note
[2025-04-04 12:59] LABS: CA 125 281.0 U/mL (<30.2); Carcinoembryonic Antigen 3.2 ng/mL (0.0-5.0)
== END 2025-04-06 23:59 | disposition home or self-care (01) ==
LOC: SCTC 08:26
PROVIDERS: PCP Family Medicine; Referring Provider Family Medicine; Visit Provider Internal Medicine Hematology & Oncology
DX: Z51.11 Encounter for antineoplastic chemotherapy (principal); C56.3 Malignant neoplasm of bilateral ovaries; J91.0 Malignant pleural effusion; R18.0 Malignant ascites; I10 Essential (primary) hypertension; E11.9 Type 2 diabetes mellitus without complications; E78.00 Pure hypercholesterolemia, unspecified; D64.9 Anemia, unspecified; E03.9 Hypothyroidism, unspecified
CPT/HCPCS: 36591; 80053; 81001; 82378; 85025; 86304; 96413; A4216; J1642; J3490; J7040; Q5126